=== PATIENT | female | born 1970 | race Caucasian/White ===

== ENCOUNTER 2017-05-29 16:08 | Emergency (ER) | payer SELFPAY ==
[~2017-05-29] VITALS: Ht 167.6 cm; Wt 59.0 kg
[2017-05-29 16:39] VITALS: BP 126/82
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
[2017-05-29] MEDS ORDERED: IBUPROFEN 600 MG TABLET. PO ONE (16:45)
[2017-05-29] MEDS ORDERED: NAPR-683 PO (16:58)
[2017-05-29] MEDS ORDERED: CYCL10TA2 PO (16:58)
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
== END 2017-05-29 17:02 | disposition home or self-care (01) ==
LOC: ER 16:08
DX: S46.911A Strain of unspecified muscle, fascia and tendon at shoulder and upper arm level, right arm, initial encounter (principal); I10 Essential (primary) hypertension; F12.10 Cannabis abuse, uncomplicated; F10.10 Alcohol abuse, uncomplicated; X58.XXXA Exposure to other specified factors, initial encounter; Y93.89 Activity, other specified; Y99.8 Other external cause status; Y92.89 Other specified places as the place of occurrence of the external cause
CPT/HCPCS: 73030; 99284

== ENCOUNTER 2017-06-13 15:49 | Emergency (ER) | payer SELFPAY ==
[~2017-06-13 15:49] MED LIST: CYCL10TA2 PO; NAPR-683 PO
== END 2017-06-13 16:06 | disposition left against medical advice (07) ==
LOC: ER 15:49
DX: J02.9 Acute pharyngitis, unspecified (principal); Z53.21 Procedure and treatment not carried out due to patient leaving prior to being seen by health care provider

== ENCOUNTER 2017-07-01 23:23 | Emergency (ER) | payer SELFPAY ==
[2017-07-01 23:41] LABS: URINE HCG POC HCG NEGATIVE (Negative)
== END 2017-07-02 00:18 | disposition home or self-care (01) ==
LOC: ER 23:23
DX: S46.912A Strain of unspecified muscle, fascia and tendon at shoulder and upper arm level, left arm, initial encounter (principal); F12.10 Cannabis abuse, uncomplicated; F17.210 Nicotine dependence, cigarettes, uncomplicated; Y04.0XXA Assault by unarmed brawl or fight, initial encounter; Y93.89 Activity, other specified; Y92.89 Other specified places as the place of occurrence of the external cause; Y99.8 Other external cause status
CPT/HCPCS: 73030; 81025; 99284

== ENCOUNTER 2017-10-23 07:15 | Emergency (ER) | payer SELFPAY ==
[2017-10-23] MEDS: KETOROLAC 60 MG/2 ML INJ. IM (08:00)
== END 2017-10-23 08:57 | disposition home or self-care (01) ==
LOC: ER 07:15
DX: S16.1XXA Strain of muscle, fascia and tendon at neck level, initial encounter (principal); R21 Rash and other nonspecific skin eruption; F17.200 Nicotine dependence, unspecified, uncomplicated; F12.10 Cannabis abuse, uncomplicated; X58.XXXA Exposure to other specified factors, initial encounter; Y93.89 Activity, other specified; Y99.8 Other external cause status; Y92.89 Other specified places as the place of occurrence of the external cause
CPT/HCPCS: 96372; 99283; J1885

== ENCOUNTER 2018-08-05 16:23 | Emergency (ER) | payer SELFPAY ==
[~2018-08-05] VITALS: Ht 167.6 cm; Wt 59.0 kg
[~2018-08-05 16:23] MED LIST changes: +CYCL5TAB PO; +TRIA15OI TP
[2018-08-05 18:01] VITALS: BP 140/56
--- NOTE | 2018-08-05 18:44 | PHYS DOC ---
Past Medical History Past Medical History: Other Additional Past Medical Histor: "Needs Spine Surgery" Past Surgical History: No Surgical History Alcohol Use: Rarely Drug Use: Marijuana Adult General Chief Complaint Chief Complaint: ABSCESS HPI HPI 47-year-old female presents to ER for complaints of sore on the left side of her left eyebrow. Patient reports sore has been present for the past week and a half and has gradually worsened. Patient states she has had an abscess on her face previously with similar presentation. Patient reports she's had intermittent headache denies any vision change, dizziness, or eye pain. Patient denies nausea or vomiting, fever, or earache. Review of Systems Review of Systems Constitutional: Denies fever or chills [] Eyes: Denies change in visual acuity, redness, or eye pain [] HENT: Denies nasal congestion or sore throat [] Cardiovascular: No additional information not addressed in HPI [] GI: Denies nausea, vomiting Musculoskeletal: Denies neck pain or joint pain [] Integument: Reports sore on lt side of lt eyebrow with swelling/redness Neurologic: Denies focal weakness or sensory changes [] All other systems were reviewed and found to be within normal limits, except as documented in this note. Current Medications Current Medications Current Medications Medications (Trade) Dose Ordered Sig/Abhishek Start Time Stop Time Status Last Admin Dose Admin Ibuprofen (Motrin) 600 mg 1X ONCE 08/05/18 18:45 08/05/18 18:46 DC 08/05/18 18:39 600 MG Lidocaine HCl (Xylocaine-Mpf 1% 2ml Vial) 2 ml 1X ONCE 08/05/18 18:45 08/05/18 18:46 DC 08/05/18 18:39 2 ML Allergies Allergies Allergies Coded Allergies Type Severity Reaction Last Updated Verified No Known Drug Allergies 09/06/14 No Physical Exam Physical Exam Constitutional: Well developed, well nourished, no acute distress, non-toxic appearance. [] HENT: Normocephalic, atraumatic, bilateral ears normal, oropharynx moist, no oral exudates, nose normal. Swelling to lateral edge of lt eyebrow with redness/ tenderness at site- wound has induration surrounding with area of fluctuation in center Eyes: 3mm PERRLA, no nystagmus, conjunctiva normal, no discharge. [] Neck: Normal range of motion, no tenderness, supple, no gross adenopathy Cardiovascular: Heart rate regular Lungs & Thorax: Resp. equal/nonlabored Skin: Warm, dry Back: No tenderness, full ROM Extremities: No tenderness, no cyanosis, ROM intact, no edema. [] Neurologic: Alert and oriented X 3, normal motor function, normal sensory function, no focal deficits noted. [] Psychologic: Affect normal, judgement normal, mood normal. [] Current Patient Data Vital Signs Vital Signs Date Time Temp Pulse Resp B/P (MAP) Pulse Ox O2 Delivery O2 Flow Rate FiO2 08/05/18 18:01 99.0 100 18 140/56 (84) 100 Room Air 99.0 EKG EKG [] Radiology/Procedures Radiology/Procedures Abscess Incision and Drainage with irrigation by me: 1909 Location: Just lateral to lt upper eyelid at the bottom edge of eye brow- no eye lid involvement Anesthesia: Local 1% Lidocaine 1mL Technique: #15 blade for incision and NS used for wound Irrigation. Disrupted loculations w/ instrumentation. Moderate amt purulent drainage from center of abscess Packin/ plain packing inserted with bandaid covering wound Complications: No complications- no c/o vision changes/dizziness/eye pain- reports improved head pain 48 hour wound check. Scar minimization instructions given. Course & Med Decision Making Course & Med Decision Making Pt was evaluated in the ER for an abscess to the left side of her left upper eyelid just below her eyebrow. Patient was given dose of ibuprofen while in the ER. Patient had I&D done with moderate amount of purulent drainage-wound culture was obtained. Patient had packing placed to wound with education on need for packing to be removed in 24 hours. Patient had instant relief and pressure at wound site and improved symptoms. She denied any dizziness or eye pain. Education provided on signs and symptoms for patient to return to ER for and discharge instructions were discussed. Patient advised on warm compress applications to site. Education on wound care provided. Patient will be provided with prescription for Bactrim DS. Will provide with community clinic and physician referral information for follow-up purposes as patient has no primary care physician. At time of discharge discussion pt had steady gait and was in no distress. Dragon Disclaimer Dragon Disclaimer This electronic medical record was generated, in whole or in part, using a voice recognition dictation system. Departure Departure Impression: Primary Impression: Abscess Disposition: HOME, SELF-CARE Condition: STABLE Referrals: NO PCP (PCP) Patient Instructions: Abscess, Incision and Drainage Additional Instructions: Avoid squeezing or picking on sore. Ibuprofen as directed on container for additional pain relief as needed. Follow-up with primary doctor in 2-3 days for wound re-evaluation sooner with any concerns. Packing needs to be removed in 24 hours you can return to the ER if you are unable to get into a clinic for wound reevaluation. Scripts Sulfamethoxazole/Trimethoprim (BACTRIM DS TABLET) 1 Each Tablet 1 TAB PO BID, #14 TAB 0 Refills Prov: LISBETH JONES APRN 08/05/18 LISBETH JONES APRN Aug 05, 2018 18:44
[2018-08-05] MEDS ORDERED: LIDOCAINE 1% PF 2 ML VIAL. INJ ONE (18:45)
[2018-08-05] MEDS ORDERED: IBUPROFEN 600 MG TABLET. PO ONE (18:45)
[2018-08-05] MEDS ORDERED: SULF1TAB24 PO (19:37)
== END 2018-08-05 19:44 | disposition home or self-care (01) ==
LOC: ER 16:23
DX: L02.01 Cutaneous abscess of face (principal)
CPT/HCPCS: 10060; 87070; 99283

== ENCOUNTER 2019-04-12 14:38 | Emergency (ER) | payer SELFPAY ==
[~2019-04-12] VITALS: Ht 167.6 cm; Wt 49.9 kg
[~2019-04-12 14:38] MED LIST changes: +SULF1TAB24 PO; +TRIA15CR2 TP
[2019-04-12 15:11] VITALS: BP 123/75
[2019-04-12] MEDS ORDERED: CEPH-264 PO (15:18)
[2019-04-12] MEDS ORDERED: CLOT15CR5 TP (15:18)
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
== END 2019-04-12 15:32 | disposition home or self-care (01) ==
LOC: ER 14:38
DX: L97.929 Non-pressure chronic ulcer of unspecified part of left lower leg with unspecified severity (principal); I10 Essential (primary) hypertension
CPT/HCPCS: 99283

== ENCOUNTER 2019-08-14 22:47 | Emergency (ER) | payer SELFPAY ==
[~2019-08-14] VITALS: Ht 167.6 cm; Wt 72.0 kg
[~2019-08-14 22:47] MED LIST changes: +CEPH-264 PO; +CLOT15CR5 TP
[2019-08-14 23:15] VITALS: BP 128/80
[2019-08-14] MEDS ORDERED: IBUPROFEN 200 MG TABLET. PO ONE (23:30)
[2019-08-14] MEDS ORDERED: TRAM50TA PO (23:43)
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
== END 2019-08-14 23:54 | disposition home or self-care (01) ==
LOC: ER 22:47
DX: S62.396A Other fracture of fifth metacarpal bone, right hand, initial encounter for closed fracture (principal); R60.0 Localized edema; Y08.09XA Assault by strike by other specified type of sport equipment, initial encounter; Y93.89 Activity, other specified; Y92.89 Other specified places as the place of occurrence of the external cause; Y99.8 Other external cause status
CPT/HCPCS: 29125; 73130; 99283

== ENCOUNTER 2019-09-02 08:46 | Emergency (ER) | payer SELFPAY ==
[~2019-09-02 08:46] MED LIST changes: +TRAM50TA PO
== END 2019-09-02 09:10 | disposition left against medical advice (07) ==
LOC: ER 08:46
DX: G89.18 Other acute postprocedural pain (principal); Z53.21 Procedure and treatment not carried out due to patient leaving prior to being seen by health care provider

== ENCOUNTER 2019-10-08 12:57 | Inpatient (IN) | payer SELFPAY ==
[~2019-10-08] VITALS: Ht 167.6 cm; Wt 60.5 kg
[2019-10-08] MEDS ORDERED: LORazepam 0.5 MG TABLET PO ONE (13:45)
--- NOTE | 2019-10-08 13:59 | RAD ---
AP chest. HISTORY: Cough, short of breath AP view was taken of the chest. The heart is enlarged. There is pulmonary vascular congestion with interstitial edema. There are small effusions. The pattern suggests heart failure. Interstitial infiltrates for other etiologies could not be excluded. IMPRESSION: 1. Cardiomegaly with vascular congestion and interstitial edema suggests heart failure. Electronically signed by: Franc Rios MD (10/08/2019 1:56 PM) [id number]
[2019-10-08 14:50] LABS: BASO # 0.1 x10^3/uL (0.0-0.2); BASO % 1 % (0-3); EOS % 0 % (0-3); HEMATOCRIT 39.5 % (36.0-47.0); HEMOGLOBIN 12.9 g/dL (12.0-15.5); LYMPH # 3.2 x10^3/uL (1.0-4.8); LYMPH % 52 % (24-48); MEAN CORPUSCULAR HEMOGLOBIN 28 pg (25-35); MEAN CORPUSCULAR HGB CONC 33 g/dL (31-37); MEAN CORPUSCULAR VOLUME 85 fL (79-100); MONO # 0.9 x10^3/uL (0.0-1.1); MONO % 14 % (0-9); NEUT % 33 % (31-73); PLATELET COUNT 249 x10^3/uL (140-400); RED BLOOD COUNT 4.67 x10^6/uL (3.50-5.40); RED CELL DISTRIBUTION WIDTH 14.2 % (11.5-14.5); WHITE BLOOD COUNT 6.2 x10^3/uL (4.0-11.0)
--- NOTE | 2019-10-08 14:57 | EKG ---
[facility] [address] [place] [address] Test Date: 2019-10-08 Test Time: 14:34:24 Pat Name: BRIDGET BACH Department: Room: Gender: F [employer]: FRANCISCO : 1970 Requested By: CYN LIU Order Number: [id number] Reading MD: Jose Schroeder Measurements Intervals Garden Rate: 125 P: 30 CT: 120 QRS: -109 QRSD: 94 T: 112 QT: 354 QTc: 513 Interpretive Statements SINUS TACHYCARDIA VENTRICULAR PREMATURE COMPLEX(ES) INCOMPLETE RIGHT BUNDLE BRANCH BLOCK CONSIDER LEFT VENTRICULAR HYPERTROPHY NONSPECIFIC ST-T WAVE CHANGES. Electronically Signed On 10-09-2019 11:15:47 CDT by Jose Schroeder
[2019-10-08 14:59] LABS: PROTHROMBIN TIME PATIENT 14.8 SEC (11.7-14.0)
[2019-10-08 15:06] LABS: ALBUMIN 2.7 g/dL (3.4-5.0); ALBUMIN/GLOBULIN RATIO 0.7 (1.0-1.7); CREATININE 0.6 mg/dL (0.6-1.0); GFR 107.2; MAGNESIUM 1.3 mg/dL (1.8-2.4); TOTAL BILIRUBIN 1.2 mg/dL (0.2-1.0); TOTAL PROTEIN 6.6 g/dL (6.4-8.2)
[2019-10-08 15:14] LABS: POTASSIUM 2.8 mmol/L (3.5-5.1)
[2019-10-08 15:15] LABS: CREATINE KINASE 74 U/L (26-192)
[2019-10-08] MEDS ORDERED: POTASSIUM CHLORIDE 20 MEQ TABLET.ER. PO ONE (15:15)
[2019-10-08] MEDS ORDERED: fentaNYL PF VIAL 100 MCG/2 ML VIAL IVP ONE (15:15)
[2019-10-08] MEDS ORDERED: fentaNYL PF VIAL 100 MCG/2 ML VIAL IV ONE (15:15)
--- NOTE | 2019-10-08 15:16 | PHYS DOC ---
Past Medical History Past Medical History: No Pertinent History Additional Past Medical Histor: "Needs Spine Surgery", UNKNOWN BREATHING PROBLEM Past Surgical History: Tubal ligation, Other Additional Past Surgical Histo: had surgery on her hand about 2 months ago Smoking Status: Current Every Day Smoker Alcohol Use: Occasionally Drug Use: Marijuana General Adult EDM: Chief Complaint: ANXIETY/PANIC ATTACK HPI: HPI: Patient is a 48 year old AA female who presents to the emergency department with complaints of shortness of breath and non-productive cough for the last 7 days that has progressively gotten worse. Patient states that she feels anxious at this time. She denies any fever, myalgias, headache, sore throat, nausea, vomiting, or diarrhea. She reports that her back hurts when she takes a deep breath. Patient states that she she last smoked some marijuana laced with cocaine 4 days ago. Currently she rates her chest pain a 5/10 on the pain scale. She denies any alleviating factors and states that the pain increases when she lies down. Pt denies any medical history and reports surgical hx that includes a BTL and R hand surgery. Review of Systems: Review of Systems: Constitutional: Denies fever or chills. [] Eyes: Denies change in visual acuity. [] HENT: Denies nasal congestion or sore throat. [] Respiratory: See HPI Cardiovascular: Denies palpitations or edema; reports substernal CP GI: Denies abdominal pain, nausea, vomiting, or diarrhea. [] : Denies dysuria. [] Musculoskeletal: Denies joint pain; reports diffuse upper back pain Integument: Denies rash. [] Neurologic: Denies headache, focal weakness or sensory changes. [] Endocrine: Denies polyuria or polydipsia. [] Lymphatic: Denies swollen glands. [] Psychiatric: Denies depression or anxiety. [] Heart Score: Risk Factors: Risk Factors: DM, Current or recent (<one month) smoker, HTN, HLP, family history of CAD, obesity. Risk Scores: Score 0 - 3: 2.5% MACE over next 6 weeks - Discharge Home Score 4 - 6: 20.3% MACE over next 6 weeks - Admit for Clinical Observation Score 7 - 10: 72.7% MACE over next 6 weeks - Early Invasive Strategies Current Medications: Current Medications Medications (Trade) Dose Ordered Sig/Abhishek Start Time Stop Time Status Last Admin Dose Admin Fentanyl Citrate (Fentanyl 2ml Vial) 50 mcg 1X ONCE 10/08/19 15:15 10/08/19 15:16 Lorazepam (Ativan) 1 mg 1X ONCE 10/08/19 13:45 10/08/19 13:46 DC 10/08/19 13:50 1 MG Allergies: Allergies: Allergies Coded Allergies Type Severity Reaction Last Updated Verified No Known Drug Allergies 09/06/14 No Physical Exam: PE: Constitutional: Well developed, well nourished, moderate distress, non-toxic appearance, appears anxious HENT: Normocephalic, atraumatic, bilateral external ears normal, oropharynx moist, no oral exudates, nose normal. [] Eyes: PERRLA, EOMI, conjunctiva normal, no discharge. [] Neck: Normal range of motion, no stridor. [] Cardiovascular:Heart rate regular tachycardic rhythm, no murmur [] Lungs & Thorax: Bilateral breath sounds clear to auscultation in upper lobes bilateral, diminished posterior bilat, increased rate, no retractions [] Abdomen: soft, no tenderness Skin: Warm, dry, no erythema, no rash. [] Back: No tenderness Extremities: No cyanosis, ROM intact, no edema. [] Neurologic: Alert and oriented X 3, no focal deficits noted. [] Psychologic: Affect normal, judgement normal, mood normal. [] Current Patient Data: Labs: Laboratory Tests Test 10/08/19 14:40 White Blood Count 6.2 x10^3/uL (4.0-11.0) Red Blood Count 4.67 x10^6/uL (3.50-5.40) Hemoglobin 12.9 g/dL (12.0-15.5) Hematocrit 39.5 % (36.0-47.0) Mean Corpuscular Volume 85 fL (79-100) Mean Corpuscular Hemoglobin 28 pg (25-35) Mean Corpuscular Hemoglobin Concent 33 g/dL (31-37) Red Cell Distribution Width 14.2 % (11.5-14.5) Platelet Count 249 x10^3/uL (140-400) Neutrophils (%) (Auto) 33 % (31-73) Lymphocytes (%) (Auto) 52 % (24-48) H Monocytes (%) (Auto) 14 % (0-9) H Eosinophils (%) (Auto) 0 % (0-3) Basophils (%) (Auto) 1 % (0-3) Neutrophils # (Auto) 2.0 x10^3/uL (1.8-7.7) Lymphocytes # (Auto) 3.2 x10^3/uL (1.0-4.8) Monocytes # (Auto) 0.9 x10^3/uL (0.0-1.1) Eosinophils # (Auto) 0.0 x10^3/uL (0.0-0.7) Basophils # (Auto) 0.1 x10^3/uL (0.0-0.2) Prothrombin Time 14.8 SEC (11.7-14.0) H Prothrombin Time INR 1.2 (0.8-1.1) H Activated Partial Thromboplast Time 28 SEC (24-38) Laboratory Tests 10/08/19 14:40 Vital Signs: Vital Signs Date Time Temp Pulse Resp B/P (MAP) Pulse Ox O2 Delivery O2 Flow Rate FiO2 10/08/19 14:29 126 20 151/107 (122) 99.0 10/08/19 13:05 97.8 98 Room Air 97.8 EKG: EK- Sinus tachycardia with PVCs, rate 126, no STEMI read by Dr. Umana 1531-sinus tachycardia, by atrial enlargement, abnormal left axis deviation, incomplete right bundle branch block LVH with repolarization abnormality, rate 119, no STEMI, read by Dr. Umana[] Radiology/Procedures: Radiology/Procedures: PROCEDURE: CHEST AP ONLY AP chest. HISTORY: Cough, short of breath AP view was taken of the chest. The heart is enlarged. There is pulmonary vascular congestion with interstitial edema. There are small effusions. The pattern suggests heart failure. Interstitial infiltrates for other etiologies could not be excluded. IMPRESSION: 1. Cardiomegaly with vascular congestion and interstitial edema suggests heart failure. [] Course & Med Decision Making: Course & Med Decision Making Pertinent Labs and Imaging studies reviewed. (See chart for details) COVID-19 CRITERIA: The patient was evaluated during the global COVID-19 pandemic, and that diagnosis was suspected/considered upon their initial presentation. Their evaluation, treatment and testing was consistent with current guidelines for patients who present with complaints or symptoms that may be related to COVID-19. 1533- Spoke with Dr. Oakley and advised of patient with acute heart failure, cocaine abuse, shortness of breath, and PUI. Will speak with cardiology then call Dr. Oakley back. 1537- Spoke with Gillian with cardiology and advised of patient in the ER. Per Gillian pt needs to be admitted for diuresis. 1542- spoke with Dr. Oakley who is the admitting physician, and care was assumed following discussion of patient. Patient's vital signs stable. Patient remains afebrile, appears nontoxic, respi rations even and unlabored. Patient will be admitted to the [facility] floor. Patient's case and plan of care also discussed with Dr. Umaan CRITICAL CARE: Time spent was 35 minutes. This includes medical management, evaluation, reevaluation, discussion with consultants and family. Critical Care does NOT include time spent on separately billed procedures. [] Dragon Disclaimer: Dragon Disclaimer: This electronic medical record was generated, in whole or in part, using a voice recognition dictation system. Departure Departure Impression: Primary Impression: Acute heart failure Qualified Codes: I50.9 - Heart failure, unspecified Additional Impressions: Cocaine abuse Shortness of breath Suspected COVID-19 virus infection Disposition: ADMITTED INPATIENT Admitting Physician: MARIA SANTOYO) Condition: STABLE Referrals: NO PCP (PCP) COVID-19 Assessment: COVID-19 Patient Risks: Age 65 or older: No Sign of co-morbidity: Yes Exp to person + for COVID: No Exp to PUI: No Travel from affected area: No Lower respiratory symptoms: Yes Fever: No PPE Use: Full PPE with N95 mask or PAPR: Yes (Full PPE with N95 worn by myself) CYN LIU MASCARA MOLDER Oct 08, 2019 15:16
[2019-10-08 15:29] LABS: BARBITURATES NEG (NEG); BENZODIAZEPINES NEG (NEG); CANNABINOIDS POS (NEG); COCAINE POS (NEG); METHADONE NEG (NEG); OPIATES NEG (NEG); PHENCYCLIDINE NEG (NEG)
[2019-10-08] MEDS ORDERED: FUROSEMIDE 20 MG/2 ML VIAL. IVP ONE (15:30)
[2019-10-08 15:33] LABS: AMPHETAMINE/METHAMPHETAMINE NEG (NEG)
[2019-10-08] MEDS ORDERED: fentaNYL PF VIAL 100 MCG/2 ML VIAL IV PRN (15:45)
[2019-10-08] MEDS: POTASSIUM CHLORIDE 10MEQ 100 ML IV SCH ×2 (15:46→17:18)
[2019-10-08 16:05] LABS: BILIRUBIN,URINE NEGATIVE (NEG); CLARITY,URINE CLEAR; NITRITE,URINE NEGATIVE (NEG); PROTEIN,URINE NEGATIVE (NEG-TRACE)
[2019-10-08 16:07] LABS: COLOR,URINE YELLOW
[2019-10-08 16:09] LABS: BACTERIA,URINE MODERATE /HPF (0-FEW); RBC,URINE 0 /HPF (0-2); SQUAMOUS EPITHELIAL CELL,UR FEW /LPF
[2019-10-08] MEDS ORDERED: ACETAMINOPHEN 325 MG TABLET. PO PRN (16:15)
[2019-10-08] MEDS ORDERED: CYCLOBENZAPRINE 10 MG TABLET. PO PRN (16:15)
[2019-10-08] MEDS ORDERED: ONDANSETRON PF 4 MG/2 ML VIAL. IV PRN (16:15)
[2019-10-08] MEDS ORDERED: DOCUSATE SODIUM 100 MG CAPSULE. PO PRN (16:15)
[2019-10-08] MEDS ORDERED: traMADol 50 MG TABLET PO PRN (16:15)
[2019-10-08] MEDS ORDERED: guaiFENesin ORAL 200 MG/10 ML LIQUID. PO PRN (16:15)
[2019-10-08] MEDS ORDERED: LORazepam 0.5 MG TABLET PO PRN (16:15)
[2019-10-08] MEDS ORDERED: ALBUTEROL SULFATE 2.5 MG/3 ML NEBU. NEB PRN (16:15)
--- NOTE | 2019-10-08 16:20 | PDOC1 ---
History and Physical Date of Admission Date of Admission 10/08/2019 Identification/Chief Complaint Chief Complaint I could not breathe Source Source: Chart review, Patient History of Present Illness History of Present Illness Patient is a 48-year-old female with no significant past medical history who comes today with history of more or less 1 day of shortness of breath, the patient has been a smoker since the age of 14. Of note is that the patient is a poor historian and most of the story is from report from the ER practitioner. Patient apparently came in concern for shortness of breath and she was worked up and noticed to have an elevated BNP and evidence of failure on chest x-ray, mild elevation of troponin which in the setting of cocaine abuse is not uncommon. The patient denied chest pain her main concern was her shortness of breath which apparently has been progressively getting worse to the point that now she is unable to take a deep breath, she denies pleurisy, she denies fever, no sputum production. The patient smokes cocaine as well as marijuana on top of her cigarettes most likely all her symptoms stem from the chronic use of the substances. She denies headache no strokelike symptoms no chest pain no abdominal pain no nausea vomiting diarrhea no urinary symptoms no other complaints were voiced during my visit. Patient is being admitted at the request of the ER for cardiology evaluation correction of her electrolyte disturbances and diuresis. Plan of care has been explained detail the patient no other concerns were voiced Past Medical History Cardiovascular: HTN Social History Smoke: # pack years (34) Drugs: Cocaine, Marijuana Current Problem List Problem List Problems Medical Problems: (1) Acute heart failure Status: Acute (2) Cocaine abuse Status: Acute (3) Shortness of breath Status: Acute (4) Suspected COVID-19 virus infection Status: Acute Current Medications Current Medications Current Medications Medications (Trade) Dose Ordered Sig/Abhishek Start Time Stop Time Status Last Admin Dose Admin Acetaminophen (Tylenol) 650 mg PRN Q4HRS PRN 10/08/19 16:15 Albuterol Sulfate (Ventolin Neb Soln) 2.5 mg PRN Q4HRS PRN 10/08/19 16:15 UNV Betamethasone/ Clotrimazole (Lotrisone) 1 charis BID 10/08/19 21:00 UNV Cyclobenzaprine HCl (Flexeril) 10 mg TID PRN 10/08/19 16:15 UNV Docusate Sodium (Colace) 100 mg PRN BID PRN 10/08/19 16:15 UNV Enoxaparin Sodium (Lovenox 40mg Syringe) 40 mg Q24H 10/08/19 16:15 UNV Fentanyl Citrate (Fentanyl 2ml Vial) 50 mcg PRN Q1HR PRN 10/08/19 15:45 10/09/19 15:44 Furosemide (Lasix) 20 mg 1X ONCE 10/08/19 15:30 10/08/19 15:31 DC 10/08/19 15:42 20 MG Guaifenesin (Robitussin) 200 mg PRN Q4HRS PRN 10/08/19 16:15 UNV Lorazepam (Ativan) 1 mg PRN Q4HRS PRN 10/08/19 16:15 UNV Naproxen (Naprosyn) 500 mg BID 10/08/19 21:00 UNV Non-Formulary Medication (Cyclobenzaprine Hcl ) 1 tab QHS 10/08/19 21:00 UNV Non-Formulary Medication (Triamcinolone Acetonide (Triamcinolone Acetonide 0.025% Cream)) 1 charis BID 10/08/19 21:00 UNV Ondansetron HCl (Zofran) 4 mg PRN Q4HRS PRN 10/08/19 16:15 Potassium Chloride/Water 100 ml @ 100 mls/hr Q1H 10/08/19 15:30 10/08/19 17:29 10/08/19 15:46 100 MLS/HR Potassium Chloride (Klor-Con) 40 meq 1X ONCE 10/08/19 15:15 10/08/19 15:18 DC 10/08/19 15:36 40 MEQ Tramadol HCl (Ultram) 50 mg Q6H PRN 10/08/19 16:15 UNV Triamcinolone Acetonide (Kenalog 0.1%) 1 charis BID 10/08/19 21:00 UNV Zolpidem Tartrate (Ambien) 5 mg PRN QHS PRN 10/08/19 16:15 Allergies Allergies Allergies Coded Allergies Type Severity Reaction Last Updated Verified No Known Drug Allergies 09/06/14 No ROS Review of System CONSTITUTIONAL: No fever or chills EYES: No recent changes SKIN: No rash or itching CARDIOVASCULAR: No chest pain, syncope, palpitations, or edema RESPIRATORY: No SOB or cough GASTROINTESTINAL: No nausea, vomiting or abdominal pain NEUROLOGICAL: No headaches or weakness ENDOCRINE: No cold or heat intolerance GENITOURINARY: No urgency or frequency of urination MUSCULOSKELETAL: No back pain or joint pain LYMPHATICS: No enlarged lymph nodes PSYCHIATRIC: No anxiety or depression Physical Exam Physical Exam GEN.: No apparent distress. Alert and oriented. HEENT: Head is normocephalic, atraumatic NECK: Supple. LUNGS: Clear to auscultation. HEART: RRR, S1, S2 present. Peripheral pulses intact ABDOMEN: Soft, nontender. Positive bowel sounds. EXTREMITIES: Without any cyanosis. NEUROLOGIC: Normal speech, normal tone PSYCHIATRIC: Normal affect, normal mood. SKIN: No ulcerations Vitals Vitals Vital Signs Date Time Temp Pulse Resp B/P (MAP) Pulse Ox O2 Delivery O2 Flow Rate FiO2 10/08/19 15:59 126 20 163/110 (127) 10/08/19 15:39 95 Room Air 10/08/19 15:25 93.0 10/08/19 13:05 97.8 97.8 Labs Labs Laboratory Tests Test 10/08/19 14:40 10/08/19 14:45 10/08/19 15:55 White Blood Count 6.2 x10^3/uL (4.0-11.0) Red Blood Count 4.67 x10^6/uL (3.50-5.40) Hemoglobin 12.9 g/dL (12.0-15.5) Hematocrit 39.5 % (36.0-47.0) Mean Corpuscular Volume 85 fL (79-100) Mean Corpuscular Hemoglobin 28 pg (25-35) Mean Corpuscular Hemoglobin Concent 33 g/dL (31-37) Red Cell Distribution Width 14.2 % (11.5-14.5) Platelet Count 249 x10^3/uL (140-400) Neutrophils (%) (Auto) 33 % (31-73) Lymphocytes (%) (Auto) 52 % (24-48) Monocytes (%) (Auto) 14 % (0-9) Eosinophils (%) (Auto) 0 % (0-3) Basophils (%) (Auto) 1 % (0-3) Neutrophils # (Auto) 2.0 x10^3/uL (1.8-7.7) Lymphocytes # (Auto) 3.2 x10^3/uL (1.0-4.8) Monocytes # (Auto) 0.9 x10^3/uL (0.0-1.1) Eosinophils # (Auto) 0.0 x10^3/uL (0.0-0.7) Basophils # (Auto) 0.1 x10^3/uL (0.0-0.2) Prothrombin Time 14.8 SEC (11.7-14.0) Prothromb Time International Ratio 1.2 (0.8-1.1) Activated Partial Thromboplast Time 28 SEC (24-38) D-Dimer (Paola) 1.82 ug/mlFEU (0.00-0.50) Sodium Level 140 mmol/L (136-145) Potassium Level 2.8 mmol/L (3.5-5.1) Chloride Level 102 mmol/L (98-107) Carbon Dioxide Level 29 mmol/L (21-32) Anion Gap 9 (6-14) Blood Urea Nitrogen 9 mg/dL (7-20) Creatinine 0.6 mg/dL (0.6-1.0) Estimated GFR (Cockcroft-Gault) 107.2 BUN/Creatinine Ratio 15 (6-20) Glucose Level 133 mg/dL (70-99) Calcium Level 9.0 mg/dL (8.5-10.1) Magnesium Level 1.3 mg/dL (1.8-2.4) Total Bilirubin 1.2 mg/dL (0.2-1.0) Aspartate Amino Transf (AST/SGOT) 35 U/L (15-37) Alanine Aminotransferase (ALT/SGPT) 36 U/L (14-59) Alkaline Phosphatase 182 U/L (46-116) Creatine Kinase 74 U/L (26-192) Creatine Kinase MB (Mass) 1.5 ng/mL (0.0-3.6) Creatine Kinase MB Relative Index % (0-4) Troponin I Quantitative 0.061 ng/mL (0.000-0.055) CZ-Ldy-X-Type Natriuretic Peptide 9151 pg/mL (0-124) Total Protein 6.6 g/dL (6.4-8.2) Albumin 2.7 g/dL (3.4-5.0) Albumin/Globulin Ratio 0.7 (1.0-1.7) Urine Opiates Screen Neg (NEG) Urine Methadone Screen Neg (NEG) Urine Barbiturates Neg (NEG) Urine Phencyclidine Screen Neg (NEG) Urine Amphetamine/Methamphetamine Neg (NEG) Urine Benzodiazepines Screen Neg (NEG) Urine Cocaine Screen Pos (NEG) Urine Cannabinoids Screen Pos (NEG) Urine Ethyl Alcohol Neg (NEG) Urine Collection Type Unknown Urine Color Yellow Urine Clarity Clear Urine pH 7.0 (<5.0-8.0) Urine Specific [place] <=1.005 (1.000-1.030) Urine Protein Negative mg/dL (NEG-TRACE) Urine Glucose (UA) Negative mg/dL (NEG) Urine Ketones (Stick) Negative mg/dL (NEG) Urine Blood Negative (NEG) Urine Nitrite Negative (NEG) Urine Bilirubin Negative (NEG) Urine Urobilinogen Dipstick 2.0 mg/dL (0.2 mg/dL) Urine Leukocyte Esterase Trace (NEG) Urine RBC 0 /HPF (0-2) Urine WBC 1-4 /HPF (0-4) Urine Squamous Epithelial Cells Few /LPF Urine Bacteria Moderate /HPF (0-FEW) Laboratory Tests Test 10/08/19 14:40 10/08/19 14:45 10/08/19 15:55 White Blood Count 6.2 x10^3/uL (4.0-11.0) Red Blood Count 4.67 x10^6/uL (3.50-5.40) Hemoglobin 12.9 g/dL (12.0-15.5) Hematocrit 39.5 % (36.0-47.0) Mean Corpuscular Volume 85 fL (79-100) Mean Corpuscular Hemoglobin 28 pg (25-35) Mean Corpuscular Hemoglobin Concent 33 g/dL (31-37) Red Cell Distribution Width 14.2 % (11.5-14.5) Platelet Count 249 x10^3/uL (140-400) Neutrophils (%) (Auto) 33 % (31-73) Lymphocytes (%) (Auto) 52 % (24-48) Monocytes (%) (Auto) 14 % (0-9) Eosinophils (%) (Auto) 0 % (0-3) Basophils (%) (Auto) 1 % (0-3) Neutrophils # (Auto) 2.0 x10^3/uL (1.8-7.7) Lymphocytes # (Auto) 3.2 x10^3/uL (1.0-4.8) Monocytes # (Auto) 0.9 x10^3/uL (0.0-1.1) Eosinophils # (Auto) 0.0 x10^3/uL (0.0-0.7) Basophils # (Auto) 0.1 x10^3/uL (0.0-0.2) Prothrombin Time 14.8 SEC (11.7-14.0) Prothromb Time International Ratio 1.2 (0.8-1.1) Activated Partial Thromboplast Time 28 SEC (24-38) D-Dimer (Paola) 1.82 ug/mlFEU (0.00-0.50) Sodium Level 140 mmol/L (136-145) Potassium Level 2.8 mmol/L (3.5-5.1) Chloride Level 102 mmol/L (98-107) Carbon Dioxide Level 29 mmol/L (21-32) Anion Gap 9 (6-14) Blood Urea Nitrogen 9 mg/dL (7-20) Creatinine 0.6 mg/dL (0.6-1.0) Estimated GFR (Cockcroft-Gault) 107.2 BUN/Creatinine Ratio 15 (6-20) Glucose Level 133 mg/dL (70-99) Calcium Level 9.0 mg/dL (8.5-10.1) Magnesium Level 1.3 mg/dL (1.8-2.4) Total Bilirubin 1.2 mg/dL (0.2-1.0) Aspartate Amino Transf (AST/SGOT) 35 U/L (15-37) Alanine Aminotransferase (ALT/SGPT) 36 U/L (14-59) Alkaline Phosphatase 182 U/L (46-116) Creatine Kinase 74 U/L (26-192) Creatine Kinase MB (Mass) 1.5 ng/mL (0.0-3.6) Creatine Kinase MB Relative Index % (0-4) Troponin I Quantitative 0.061 ng/mL (0.000-0.055) IY-Hel-R-Type Natriuretic Peptide 9151 pg/mL (0-124) Total Protein 6.6 g/dL (6.4-8.2) Albumin 2.7 g/dL (3.4-5.0) Albumin/Globulin Ratio 0.7 (1.0-1.7) Urine Opiates Screen Neg (NEG) Urine Methadone Screen Neg (NEG) Urine Barbiturates Neg (NEG) Urine Phencyclidine Screen Neg (NEG) Urine Amphetamine/Methamphetamine Neg (NEG) Urine Benzodiazepines Screen Neg (NEG) Urine Cocaine Screen Pos (NEG) Urine Cannabinoids Screen Pos (NEG) Urine Ethyl Alcohol Neg (NEG) Urine Collection Type Unknown Urine Color Yellow Urine Clarity Clear Urine pH 7.0 (<5.0-8.0) Urine Specific [place] <=1.005 (1.000-1.030) Urine Protein Negative mg/dL (NEG-TRACE) Urine Glucose (UA) Negative mg/dL (NEG) Urine Ketones (Stick) Negative mg/dL (NEG) Urine Blood Negative (NEG) Urine Nitrite Negative (NEG) Urine Bilirubin Negative (NEG) Urine Urobilinogen Dipstick 2.0 mg/dL (0.2 mg/dL) Urine Leukocyte Esterase Trace (NEG) Urine RBC 0 /HPF (0-2) Urine WBC 1-4 /HPF (0-4) Urine Squamous Epithelial Cells Few /LPF Urine Bacteria Moderate /HPF (0-FEW) VTE Prophylaxis Ordered VTE Prophylaxis Devices: No VTE Pharmacological Prophylaxi: Yes Assessment/Plan Assessment/Plan Dyspnea secondary to most likely acute COPD exacerbation Cocaine abuse with subsequent elevation in troponin secondary to demand ischemia most likely Elevated BNP with no history of congestive heart failure Tobacco abuse Marijuana abuse Hypokalemia History of chronic back pain without alarming signs Plan Admit the patient for diuresis Replace electrolytes Resume home medication Cardiology consult has been requested Further recommendations based on the clinical course Please see orders for detail DVT prophylaxis with MARY Tian MD Oct 08, 2019 16:20
[2019-10-08 16:33] LABS: INFLUENZA A PATIENT NEGATIVE (NEGATIVE); INFLUENZA B PATIENT NEGATIVE (NEGATIVE)
[2019-10-08] MEDS ORDERED: IOHEXOL 350 MG/ML 100 ML VIAL. IV ONE (17:45)
[2019-10-08] MEDS ORDERED: CONTRAST GIVEN. MC PRN (17:45)
--- NOTE | 2019-10-08 18:33 | RAD ---
Exam: CT of chest with contrast INDICATION: Elevated d-dimer, chest pain, tachycardia TECHNIQUE: Sequential axial images through the chest obtained following the administration of 75 mL of Omni 350 IV contrast. Sagittal and coronal reformatted images were reconstructed from the axial data and reviewed. 3-D reformatted images were reconstructed from the axial data and reviewed. Comparisons: Chest x-ray same day FINDINGS: No enlarged mediastinal lymph nodes are identified. Heart is enlarged. No pericardial effusion. Thoracic aorta has a normal course and caliber. Pulmonary artery is not enlarged. No pulmonary embolus identified within the main and lobar pulmonary arteries. Airways are patent. No consolidation or pneumothorax. There is a moderate right and trace left pleural effusion. Visualized upper abdomen is unremarkable. No suspicious osseous lesions or acute fractures. IMPRESSION: No pulmonary embolus identified within the main or lobar pulmonary arteries. Evaluation distally is limited secondary to contrast bolus timing. Exposure: One or more of the following in the visualized dose reduction techniques were utilized for this examination: 1. Automated exposure control 2. Adjustment of the MA and/or KV according to patient size 3. Use of iterative of reconstructive technique Electronically signed by: Stacie Morales MD (10/08/2019 6:30 PM) [id number]
[2019-10-08 19:00] VITALS: BP 132/98
[2019-10-08] MEDS ORDERED: CLOTRIMAZOLE/BETAMETH 1%-0.05% TOPICAL CREAM 15GM TUBE. TP SCH (21:00)
[2019-10-08] MEDS ORDERED: TRIAMCINOLONE ACETONIDE 0.1% TOPICAL OINTMENT 15GM TUBE. TP SCH (21:00)
[2019-10-08] MEDS ORDERED: TRIAMCINOLONE ACETONIDE TP SCH (21:00)
[2019-10-08] MEDS: CYCLOBENZAPRINE 10 MG TABLET. PO SCH (21:01)
[2019-10-08] MEDS: ENOXAPARIN 40 MG/0.4 ML SYRINGE. SQ SCH (21:01)
[2019-10-08] MEDS: NAPROXEN 500 MG TABLET PO SCH (21:02)
[2019-10-08] MEDS: POTASSIUM CHLORIDE 20 MEQ TABLET.ER. PO SCH ×2 (21:02→23:35)
[2019-10-08] MEDS: ZOLPIDEM 5 MG TABLET. PO PRN (21:14)
[2019-10-08 23:00] VITALS: BP 136/90
[2019-10-09] MEDS: POTASSIUM CHLORIDE 20 MEQ TABLET.ER. PO SCH (00:25)
[2019-10-09 03:00] VITALS: BP 114/73
[2019-10-09 07:00] VITALS: BP 125/97
[2019-10-09] MEDS: NAPROXEN 500 MG TABLET PO SCH (08:36)
[2019-10-09 11:00] VITALS: BP 138/87
[2019-10-09 11:38] LABS: CALCIUM 8.6 mg/dL (8.5-10.1); CREATININE 0.8 mg/dL (0.6-1.0); GFR 76.9; MAGNESIUM 1.4 mg/dL (1.8-2.4); POTASSIUM 4.2 mmol/L (3.5-5.1)
--- NOTE | 2019-10-09 11:40 | NUR ---
IP: Pt is COVID negative and may be removed from isolation.
[2019-10-09 11:42] LABS: CHOLESTEROL/HDL RATIO 4.5
--- NOTE | 2019-10-09 12:26 | PDOC3 ---
Discharge Summary Visit Information Date of Admission: Oct 08, 2019 Date of Discharge: Oct 09, 2019 Admitting Diagnosis Comment: Dyspnea secondary to most likely acute COPD exacerbation Cocaine abuse with subsequent elevation in troponin secondary to demand ischemia most likely Elevated BNP with no history of congestive heart failure Tobacco abuse Marijuana abuse Hypokalemia History of chronic back pain without alarming signs Final Diagnosis Problems Medical Problems: (1) Acute heart failure Status: Acute (2) Cocaine abuse Status: Acute (3) Shortness of breath Status: Acute (4) Negative test for COVID-19 virus infection Status: Acute Elevated TSH Brief Hospital Course Allergies Allergies Coded Allergies Type Severity Reaction Last Updated Verified No Known Drug Allergies 09/06/14 No Vital Signs Vital Signs Date Time Temp Pulse Resp B/P (MAP) Pulse Ox O2 Delivery O2 Flow Rate FiO2 10/09/19 08:00 Room Air 10/09/19 07:00 97.5 116 125/97 (106) 100 2.0 97.5 10/09/19 03:00 20 Lab Results Laboratory Tests Test 10/08/19 14:40 10/08/19 14:45 10/08/19 15:50 10/08/19 15:52 White Blood Count 6.2 x10^3/uL (4.0-11.0) Red Blood Count 4.67 x10^6/uL (3.50-5.40) Hemoglobin 12.9 g/dL (12.0-15.5) Hematocrit 39.5 % (36.0-47.0) Mean Corpuscular Volume 85 fL (79-100) Mean Corpuscular Hemoglobin 28 pg (25-35) Mean Corpuscular Hemoglobin Concent 33 g/dL (31-37) Red Cell Distribution Width 14.2 % (11.5-14.5) Platelet Count 249 x10^3/uL (140-400) Neutrophils (%) (Auto) 33 % (31-73) Lymphocytes (%) (Auto) 52 % (24-48) Monocytes (%) (Auto) 14 % (0-9) Eosinophils (%) (Auto) 0 % (0-3) Basophils (%) (Auto) 1 % (0-3) Neutrophils # (Auto) 2.0 x10^3/uL (1.8-7.7) Lymphocytes # (Auto) 3.2 x10^3/uL (1.0-4.8) Monocytes # (Auto) 0.9 x10^3/uL (0.0-1.1) Eosinophils # (Auto) 0.0 x10^3/uL (0.0-0.7) Basophils # (Auto) 0.1 x10^3/uL (0.0-0.2) Prothrombin Time 14.8 SEC (11.7-14.0) Prothromb Time International Ratio 1.2 (0.8-1.1) Activated Partial Thromboplast Time 28 SEC (24-38) D-Dimer (Paola) 1.82 ug/mlFEU (0.00-0.50) Sodium Level 140 mmol/L (136-145) Potassium Level 2.8 mmol/L (3.5-5.1) Chloride Level 102 mmol/L (98-107) Carbon Dioxide Level 29 mmol/L (21-32) Anion Gap 9 (6-14) Blood Urea Nitrogen 9 mg/dL (7-20) Creatinine 0.6 mg/dL (0.6-1.0) Estimated GFR (Cockcroft-Gault) 107.2 BUN/Creatinine Ratio 15 (6-20) Glucose Level 133 mg/dL (70-99) Calcium Level 9.0 mg/dL (8.5-10.1) Magnesium Level 1.3 mg/dL (1.8-2.4) Total Bilirubin 1.2 mg/dL (0.2-1.0) Aspartate Amino Transf (AST/SGOT) 35 U/L (15-37) Alanine Aminotransferase (ALT/SGPT) 36 U/L (14-59) Alkaline Phosphatase 182 U/L (46-116) Creatine Kinase 74 U/L (26-192) Creatine Kinase MB (Mass) 1.5 ng/mL (0.0-3.6) Creatine Kinase MB Relative Index % (0-4) Troponin I Quantitative 0.061 ng/mL (0.000-0.055) DR-Fep-E-Type Natriuretic Peptide 9151 pg/mL (0-124) Total Protein 6.6 g/dL (6.4-8.2) Albumin 2.7 g/dL (3.4-5.0) Albumin/Globulin Ratio 0.7 (1.0-1.7) Urine Opiates Screen Neg (NEG) Urine Methadone Screen Neg (NEG) Urine Barbiturates Neg (NEG) Urine Phencyclidine Screen Neg (NEG) Urine Amphetamine/Methamphetamine Neg (NEG) Urine Benzodiazepines Screen Neg (NEG) Urine Cocaine Screen Pos (NEG) Urine Cannabinoids Screen Pos (NEG) Urine Ethyl Alcohol Neg (NEG) Influenza Type A Antigen Negative (NEGATIVE) Influenza Type B Antigen Negative (NEGATIVE) Coronavirus (COVID-19)(PCR) See separate report Test 10/08/19 15:55 10/09/19 11:10 Urine Collection Type Unknown Urine Color Yellow Urine Clarity Clear Urine pH 7.0 (<5.0-8.0) Urine Specific [place] <=1.005 (1.000-1.030) Urine Protein Negative mg/dL (NEG-TRACE) Urine Glucose (UA) Negative mg/dL (NEG) Urine Ketones (Stick) Negative mg/dL (NEG) Urine Blood Negative (NEG) Urine Nitrite Negative (NEG) Urine Bilirubin Negative (NEG) Urine Urobilinogen Dipstick 2.0 mg/dL (0.2 mg/dL) Urine Leukocyte Esterase Trace (NEG) Urine RBC 0 /HPF (0-2) Urine WBC 1-4 /HPF (0-4) Urine Squamous Epithelial Cells Few /LPF Urine Bacteria Moderate /HPF (0-FEW) Sodium Level 144 mmol/L (136-145) Potassium Level 4.2 mmol/L (3.5-5.1) Chloride Level 106 mmol/L (98-107) Carbon Dioxide Level 31 mmol/L (21-32) Anion Gap 7 (6-14) Blood Urea Nitrogen 16 mg/dL (7-20) Creatinine 0.8 mg/dL (0.6-1.0) Estimated GFR (Cockcroft-Gault) 76.9 Glucose Level 94 mg/dL (70-99) Calcium Level 8.6 mg/dL (8.5-10.1) Magnesium Level 1.4 mg/dL (1.8-2.4) Troponin I Quantitative 0.051 ng/mL (0.000-0.055) VA-Ydn-Q-Type Natriuretic Peptide 5287 pg/mL (0-124) Triglycerides Level 56 mg/dL (0-150) Cholesterol Level 99 mg/dL (0-200) LDL Cholesterol, Calculated 66 mg/dL (0-100) VLDL Cholesterol, Calculated 11 mg/dL (0-40) Non-HDL Cholesterol Calculated 77 mg/dL (0-129) HDL Cholesterol 22 mg/dL (40-60) Cholesterol/HDL Ratio 4.5 Thyroid Stimulating Hormone (TSH) < 0.007 uIU/mL (0.358-3.74) Laboratory Tests Test 10/08/19 14:40 10/08/19 14:45 10/08/19 15:50 10/08/19 15:52 White Blood Count 6.2 x10^3/uL (4.0-11.0) Red Blood Count 4.67 x10^6/uL (3.50-5.40) Hemoglobin 12.9 g/dL (12.0-15.5) Hematocrit 39.5 % (36.0-47.0) Mean Corpuscular Volume 85 fL (79-100) Mean Corpuscular Hemoglobin 28 pg (25-35) Mean Corpuscular Hemoglobin Concent 33 g/dL (31-37) Red Cell Distribution Width 14.2 % (11.5-14.5) Platelet Count 249 x10^3/uL (140-400) Neutrophils (%) (Auto) 33 % (31-73) Lymphocytes (%) (Auto) 52 % (24-48) Monocytes (%) (Auto) 14 % (0-9) Eosinophils (%) (Auto) 0 % (0-3) Basophils (%) (Auto) 1 % (0-3) Neutrophils # (Auto) 2.0 x10^3/uL (1.8-7.7) Lymphocytes # (Auto) 3.2 x10^3/uL (1.0-4.8) Monocytes # (Auto) 0.9 x10^3/uL (0.0-1.1) Eosinophils # (Auto) 0.0 x10^3/uL (0.0-0.7) Basophils # (Auto) 0.1 x10^3/uL (0.0-0.2) Prothrombin Time 14.8 SEC (11.7-14.0) Prothromb Time International Ratio 1.2 (0.8-1.1) Activated Partial Thromboplast Time 28 SEC (24-38) D-Dimer (Paola) 1.82 ug/mlFEU (0.00-0.50) Sodium Level 140 mmol/L (136-145) Potassium Level 2.8 mmol/L (3.5-5.1) Chloride Level 102 mmol/L (98-107) Carbon Dioxide Level 29 mmol/L (21-32) Anion Gap 9 (6-14) Blood Urea Nitrogen 9 mg/dL (7-20) Creatinine 0.6 mg/dL (0.6-1.0) Estimated GFR (Cockcroft-Gault) 107.2 BUN/Creatinine Ratio 15 (6-20) Glucose Level 133 mg/dL (70-99) Calcium Level 9.0 mg/dL (8.5-10.1) Magnesium Level 1.3 mg/dL (1.8-2.4) Total Bilirubin 1.2 mg/dL (0.2-1.0) Aspartate Amino Transf (AST/SGOT) 35 U/L (15-37) Alanine Aminotransferase (ALT/SGPT) 36 U/L (14-59) Alkaline Phosphatase 182 U/L (46-116) Creatine Kinase 74 U/L (26-192) Creatine Kinase MB (Mass) 1.5 ng/mL (0.0-3.6) Creatine Kinase MB Relative Index % (0-4) Troponin I Quantitative 0.061 ng/mL (0.000-0.055) AH-Sai-I-Type Natriuretic Peptide 9151 pg/mL (0-124) Total Protein 6.6 g/dL (6.4-8.2) Albumin 2.7 g/dL (3.4-5.0) Albumin/Globulin Ratio 0.7 (1.0-1.7) Urine Opiates Screen Neg (NEG) Urine Methadone Screen Neg (NEG) Urine Barbiturates Neg (NEG) Urine Phencyclidine Screen Neg (NEG) Urine Amphetamine/Methamphetamine Neg (NEG) Urine Benzodiazepines Screen Neg (NEG) Urine Cocaine Screen Pos (NEG) Urine Cannabinoids Screen Pos (NEG) Urine Ethyl Alcohol Neg (NEG) Influenza Type A Antigen Negative (NEGATIVE) Influenza Type B Antigen Negative (NEGATIVE) Coronavirus (COVID-19)(PCR) See separate report Test 10/08/19 15:55 10/09/19 11:10 Urine Collection Type Unknown Urine Color Yellow Urine Clarity Clear Urine pH 7.0 (<5.0-8.0) Urine Specific [place] <=1.005 (1.000-1.030) Urine Protein Negative mg/dL (NEG-TRACE) Urine Glucose (UA) Negative mg/dL (NEG) Urine Ketones (Stick) Negative mg/dL (NEG) Urine Blood Negative (NEG) Urine Nitrite Negative (NEG) Urine Bilirubin Negative (NEG) Urine Urobilinogen Dipstick 2.0 mg/dL (0.2 mg/dL) Urine Leukocyte Esterase Trace (NEG) Urine RBC 0 /HPF (0-2) Urine WBC 1-4 /HPF (0-4) Urine Squamous Epithelial Cells Few /LPF Urine Bacteria Moderate /HPF (0-FEW) Sodium Level 144 mmol/L (136-145) Potassium Level 4.2 mmol/L (3.5-5.1) Chloride Level 106 mmol/L (98-107) Carbon Dioxide Level 31 mmol/L (21-32) Anion Gap 7 (6-14) Blood Urea Nitrogen 16 mg/dL (7-20) Creatinine 0.8 mg/dL (0.6-1.0) Estimated GFR (Cockcroft-Gault) 76.9 Glucose Level 94 mg/dL (70-99) Calcium Level 8.6 mg/dL (8.5-10.1) Magnesium Level 1.4 mg/dL (1.8-2.4) Troponin I Quantitative 0.051 ng/mL (0.000-0.055) JR-Znv-K-Type Natriuretic Peptide 5287 pg/mL (0-124) Triglycerides Level 56 mg/dL (0-150) Cholesterol Level 99 mg/dL (0-200) LDL Cholesterol, Calculated 66 mg/dL (0-100) VLDL Cholesterol, Calculated 11 mg/dL (0-40) Non-HDL Cholesterol Calculated 77 mg/dL (0-129) HDL Cholesterol 22 mg/dL (40-60) Cholesterol/HDL Ratio 4.5 Thyroid Stimulating Hormone (TSH) < 0.007 uIU/mL (0.358-3.74) Brief Hospital Course Ms. Marrero is a 48 old female who presented with shortness of breath, most likely secondary to her habits on her personal life. Patient smokes quite a bit and besides the cigarette she indulges in marijuana and cocaine snorting. Patient most likely has cardiomyopathy as a consequence of her choices in life. Patient was quite upset this morning because her breakfast was cold and she did not experience any chest discomfort palpitations no shortness of breath she notes she was screaming at the top of the lungs while a code mindy was being called due to her violent behavior. We tried to the best of our abilities to address her needs and finally she calmed down and was able to accept our suggestion on continuing with her work-up she initially had a mildly elevated troponin which is now normal her BNP was initially at 9000 and was brought down to 5000 level after diuresis. Patient most likely will require ongoing diuresis moving forward and LEANN inhibitors plus minus beta-blockers. Cardiology consultation has been requested and they are in the process of finalizing their assessment and at the time of this note I am awaiting for their final recommendations if our bank consultant deems the patient appropriate for discharge will be dismissing the patient home with instructions to follow-up with them in the outpatient setting and also will send a referral for endocrinology given the abnormal findings of thyroid function tests ordered by our eco industrial development consultant. Lungs are clear to auscultation bilaterally and good inspiratory effort was noted cardiovascular exam was normal S1-S2 regular rhythm tachycardic of course most likely as a consequence of her cocaine abuse and of course her outburst of anger that she experienced this morning as well Discharge Information Condition at Discharge: Improved Follow Up: Weeks Disposition/Orders: D/C to Home Scheduled Cephalexin (Keflex) 500 Mg Capsule, 1 CAP PO TID for 10 Days, #30 Ref 0 Prescribed by: LUÍS PERRY APRN on 04/12/191517 Last Action: HELD on 10/08/191607 by MARY WILKINS MD Clotrimazole/Betamethasone Dip (Clotrimazole-Betamethasone Crm) 15 Gm Cream..g., 1 CELINE TP BID, #30 Ref 1 Prescribed by: LUÍS PERRY APRN on 04/12/191517 Last Action: Continued on 10/08/191608 by MARY WILKINS MD Cyclobenzaprine Hcl (Cyclobenzaprine Hcl) 5 Mg Tablet, 1 TAB PO QHS, #15 Prescribed by: SMITH PETTIT APRN on 10/23/17 0748 Last Action: Converted on 10/08/191608 by MARY WILKINS MD Naproxen (Naprosyn) 500 Mg Tablet, 1 TAB PO BID, #30 Ref 1 Prescribed by: CHETNA MCNULTY MD on 07/02/17 0001 Last Action: Continued on 10/08/191608 by MARY WILKINS MD Naproxen (Naprosyn) 500 Mg Tablet, 1 TAB PO BID, #30 Ref 1 Prescribed by: SMITH PETTIT APRN on 10/23/17 0748 Last Action: HELD on 10/08/191607 by MARY WILKINS MD Sulfamethoxazole/Trimethoprim (Bactrim Ds Tablet) 1 Each Tablet, 1 TAB PO BID, #14 Ref 0 Prescribed by: LISBETH JONES APRN on 08/05/18 193 Last Action: HELD on 10/08/191607 by MARY WILKINS MD Triamcinolone Acetonide (Triamcinolone Acetonide 0.1% Oint) 15 Gm Oint...g., 1 CELINE TP BID for WOUND CARE, #1 MIX WITH EUCERIN DIRECTED BY PHYSICIAN Prescribed by: SMITH PETTIT APRN on 10/23/17 0749 Last Action: Continued on 10/08/191608 by MARY WILKINS MD Triamcinolone Acetonide (Triamcinolone Acetonide 0.025% Cream) 15 Gm Cream..g., 1 CELINE TP BID, #30 Prescribed by: BRAULIO FARRELL MD on 02/17/192147 Last Action: Converted on 10/08/191608 by MARY WILKINS MD Scheduled PRN Cyclobenzaprine Hcl (Cyclobenzaprine Hcl) 10 Mg Tablet, 10 MG PO TID PRN for muscle spasm, #30 Prescribed by: ODILON WREN APRN on 05/29/171657 Last Action: Continued on 10/08/191608 by MARY WILKINS MD Naproxen (Naprosyn) 500 Mg Tablet, 500 MG PO BID PRN for PAIN, #20 Prescribed by: ODILON WREN APRN on 05/29/171657 Last Action: HELD on 10/08/191607 by MARY WILKINS MD Tramadol Hcl (Tramadol Hcl) 50 Mg Tablet, 50 MG PO Q6H PRN for PAIN for 3 Days, #15 Ref 0 Prescribed by: SACHIN MARTIN on 2/18/20 2343 Last Action: Continued on 10/08/191608 by MARY WILKINS MD Miscellaneous Medications Info (No Known Medications Prior To Admisstion) Each, 1 EACH MC, (Reported) Entered as Reported by: KELVIN NEWTON on 09/06/14 1402 Last Action: HELD on 10/08/191607 by MD FRANKY REINOSO HECTOR M MD Oct 09, 2019 12:25
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
[2019-10-09] MEDS ORDERED: MAGNESIUM SULFATE 4GM 100 ML IV ONE (13:00)
--- NOTE | 2019-10-09 13:07 | CARD ---
MR#: [id number] Date of Study: 10/09/2019 Ordering Physician: JESSICA ZAMORANO, Referring Physician: JESSICA ZAMORANO Tech: Malika Anderson [facility] APPROVED REPORT EXAM: Two-dimensional and M-mode echocardiogram with Doppler and color Doppler. Other Information Quality : Good INDICATION Cardiomyopathy RISK FACTORS Smoking 2D DIMENSIONS RVDd3.0 (2.9-3.5cm)Left Atrium(2D)3.4 (1.6-4.0cm) IVSd1.0 (0.7-1.1cm)Aortic Root(2D)2.7 (2.0-3.7cm) LVDd5.5 (3.9-5.9cm)LVOT Diameter2.2 (1.8-2.4cm) PWd1.1 (0.7-1.1cm)LVDs5.0 (2.5-4.0cm) FS (%) 10.0 %LVEF(%)20.0 (>50%) Aortic Valve SARABJIT (VTI)2.70cm2 Tricuspid Valve TR P. [id number] TR Peak [id number] LEFT VENTRICLE The left ventricle is normal size. There is normal left ventricular wall thickness. Left ventricle sy stolic function is severely impaired. The Ejection Fraction is 15-20%. There is severe global hypokin esis of the left ventricle. Septal motion consistent with conduction abnormality. Transmitral Doppler flow pattern is Grade II-pseudonormal filling dynamics. RIGHT VENTRICLE The right ventricle is normal size. The right ventricular systolic function is normal. ATRIA The left atrium is mildly dilated. The right atrium is mildly dilated. The interatrial septum is inta ct with no evidence for an atrial septal defect or patent foramen ovale as noted on 2-D or Doppler im aging. AORTIC VALVE The aortic valve is normal in structure and function. Doppler and Color Flow revealed no significant aortic regurgitation. There is no significant aortic valvular stenosis. MITRAL VALVE The mitral valve is thickened but opens well. There is no evidence of mitral valve prolapse. There is no mitral valve stenosis. Doppler and Color-flow revealed moderate mitral regurgitation. TRICUSPID VALVE The tricuspid valve is normal in structure and function. Doppler and Color Flow revealed mild to mode rate tricuspid regurgitation. There is moderate pulmonary hypertension. The PA pressure was estimated at 42 mmHg. There is no tricuspid valve stenosis. PULMONIC VALVE The pulmonary valve is normal in structure and function. Doppler and Color Flow revealed mild pulmoni c valvular regurgitation. There is no pulmonic valvular stenosis. GREAT VESSELS The aortic root is normal in size. The ascending aorta is normal in size. The IVC is normal in size a nd collapses <50% with inspiration. PERICARDIAL EFFUSION There is no evidence of significant pericardial effusion. Critical Notification Critical Value: No <Conclusion> Left ventricle systolic function is severely impaired. The Ejection Fraction is 15-20%. Moderate mitral regurgitation. Mild to moderate tricuspid regurgitation. The PA pressure was estimated at 42 mmHg. There is no evidence of significant pericardial effusion. Signed by : Keith Hernandez, Electronically Approved : 10/09/2019 13:07:04
--- NOTE | 2019-10-09 14:18 | NUR ---
SS following for discharge planning. SS discussed with pt RN and reviewed pt chart. Pt is from home and is currently requiring oxygen. Pt is self pay pt and COVID19 negative. Pt has history of cocaine use. SS will continue to follow for discharge planning.
[2019-10-09] MEDS ORDERED: FUROSEMIDE 40 MG TABLET. PO ONE (14:30)
--- NOTE | 2019-10-09 14:46 | PDOC ---
PROGRESS NOTES Chief Complaint Chief Complaint Dyspnea secondary to most likely acute COPD exacerbation Cocaine abuse with subsequent elevation in troponin secondary to demand ischemia most likely Hyperthyroidism etiology undetermined Elevated BNP with no history of congestive heart failure Tobacco abuse Marijuana abuse Hypokalemia History of chronic back pain without alarming signs Plan start beta terrence as per budget consultant will order uptake scan and thyroid ultrasound Replace electrolytes Resume home medication Further recommendations based on the clinical course Please see orders for detail DVT prophylaxis with Lovenox History of Present Illness History of Present Illness Code jumana had to be called,, I assisted with the nursing machine setter supervisor in calming the patient down. Patient ECHO and thyroid function tests have been noted, work up ongoing, discussed with budget consultant. Appreciate cardiology input Vitals Vitals Vital Signs Date Time Temp Pulse Resp B/P (MAP) Pulse Ox O2 Delivery O2 Flow Rate FiO2 10/09/19 08:00 Room Air 10/09/19 07:00 97.5 116 125/97 (106) 100 2.0 97.5 10/09/19 03:00 20 Physical Exam General: Alert, Oriented X3, Cooperative Heart: Regular rate (Sinus tach), Normal S1, Normal S2, Other (3/6 systolic murmur to LLS border; S3) Abdomen: Soft, No tenderness Extremities: No cyanosis, No edema Skin: No breakdown, No significant lesion Labs LABS Laboratory Tests Test 10/08/19 14:45 10/08/19 15:50 10/08/19 15:52 10/08/19 15:55 Urine Opiates Screen Neg (NEG) Urine Methadone Screen Neg (NEG) Urine Barbiturates Neg (NEG) Urine Phencyclidine Screen Neg (NEG) Urine Amphetamine/Methamphetamine Neg (NEG) Urine Benzodiazepines Screen Neg (NEG) Urine Cocaine Screen Pos (NEG) Urine Cannabinoids Screen Pos (NEG) Urine Ethyl Alcohol Neg (NEG) Influenza Type A Antigen Negative (NEGATIVE) Influenza Type B Antigen Negative (NEGATIVE) Coronavirus (COVID-19)(PCR) See separate report Urine Collection Type Unknown Urine Color Yellow Urine Clarity Clear Urine pH 7.0 (<5.0-8.0) Urine Specific [place] <=1.005 (1.000-1.030) Urine Protein Negative mg/dL (NEG-TRACE) Urine Glucose (UA) Negative mg/dL (NEG) Urine Ketones (Stick) Negative mg/dL (NEG) Urine Blood Negative (NEG) Urine Nitrite Negative (NEG) Urine Bilirubin Negative (NEG) Urine Urobilinogen Dipstick 2.0 mg/dL (0.2 mg/dL) Urine Leukocyte Esterase Trace (NEG) Urine RBC 0 /HPF (0-2) Urine WBC 1-4 /HPF (0-4) Urine Squamous Epithelial Cells Few /LPF Urine Bacteria Moderate /HPF (0-FEW) Test 10/09/19 11:10 Sodium Level 144 mmol/L (136-145) Potassium Level 4.2 mmol/L (3.5-5.1) Chloride Level 106 mmol/L (98-107) Carbon Dioxide Level 31 mmol/L (21-32) Anion Gap 7 (6-14) Blood Urea Nitrogen 16 mg/dL (7-20) Creatinine 0.8 mg/dL (0.6-1.0) Estimated GFR (Cockcroft-Gault) 76.9 Glucose Level 94 mg/dL (70-99) Calcium Level 8.6 mg/dL (8.5-10.1) Magnesium Level 1.4 mg/dL (1.8-2.4) Troponin I Quantitative 0.051 ng/mL (0.000-0.055) OB-Grj-B-Type Natriuretic Peptide 5287 pg/mL (0-124) Triglycerides Level 56 mg/dL (0-150) Cholesterol Level 99 mg/dL (0-200) LDL Cholesterol, Calculated 66 mg/dL (0-100) VLDL Cholesterol, Calculated 11 mg/dL (0-40) Non-HDL Cholesterol Calculated 77 mg/dL (0-129) HDL Cholesterol 22 mg/dL (40-60) Cholesterol/HDL Ratio 4.5 Thyroid Stimulating Hormone (TSH) < 0.007 uIU/mL (0.358-3.74) Free Thyroxine 3.83 ng/dL (0.76-1.46) Free Triiodothyronine (T3) pg/mL 11.70 pg/mL (2.18-3.98) Assessment and Plan Assessmemt and Plan Problems Medical Problems: (1) Acute heart failure Status: Acute (2) Cocaine abuse Status: Acute (3) Shortness of breath Status: Acute (4) Suspected COVID-19 virus infection Status: Acute Comment Review of Relevant I have reviewed the following items genaro (where applicable) has been applied. Labs Laboratory Tests Test 10/08/19 14:40 10/08/19 14:45 10/08/19 15:50 10/08/19 15:52 White Blood Count 6.2 x10^3/uL (4.0-11.0) Red Blood Count 4.67 x10^6/uL (3.50-5.40) Hemoglobin 12.9 g/dL (12.0-15.5) Hematocrit 39.5 % (36.0-47.0) Mean Corpuscular Volume 85 fL (79-100) Mean Corpuscular Hemoglobin 28 pg (25-35) Mean Corpuscular Hemoglobin Concent 33 g/dL (31-37) Red Cell Distribution Width 14.2 % (11.5-14.5) Platelet Count 249 x10^3/uL (140-400) Neutrophils (%) (Auto) 33 % (31-73) Lymphocytes (%) (Auto) 52 % (24-48) Monocytes (%) (Auto) 14 % (0-9) Eosinophils (%) (Auto) 0 % (0-3) Basophils (%) (Auto) 1 % (0-3) Neutrophils # (Auto) 2.0 x10^3/uL (1.8-7.7) Lymphocytes # (Auto) 3.2 x10^3/uL (1.0-4.8) Monocytes # (Auto) 0.9 x10^3/uL (0.0-1.1) Eosinophils # (Auto) 0.0 x10^3/uL (0.0-0.7) Basophils # (Auto) 0.1 x10^3/uL (0.0-0.2) Prothrombin Time 14.8 SEC (11.7-14.0) Prothromb Time International Ratio 1.2 (0.8-1.1) Activated Partial Thromboplast Time 28 SEC (24-38) D-Dimer (Paola) 1.82 ug/mlFEU (0.00-0.50) Sodium Level 140 mmol/L (136-145) Potassium Level 2.8 mmol/L (3.5-5.1) Chloride Level 102 mmol/L (98-107) Carbon Dioxide Level 29 mmol/L (21-32) Anion Gap 9 (6-14) Blood Urea Nitrogen 9 mg/dL (7-20) Creatinine 0.6 mg/dL (0.6-1.0) Estimated GFR (Cockcroft-Gault) 107.2 BUN/Creatinine Ratio 15 (6-20) Glucose Level 133 mg/dL (70-99) Calcium Level 9.0 mg/dL (8.5-10.1) Magnesium Level 1.3 mg/dL (1.8-2.4) Total Bilirubin 1.2 mg/dL (0.2-1.0) Aspartate Amino Transf (AST/SGOT) 35 U/L (15-37) Alanine Aminotransferase (ALT/SGPT) 36 U/L (14-59) Alkaline Phosphatase 182 U/L (46-116) Creatine Kinase 74 U/L (26-192) Creatine Kinase MB (Mass) 1.5 ng/mL (0.0-3.6) Creatine Kinase MB Relative Index % (0-4) Troponin I Quantitative 0.061 ng/mL (0.000-0.055) RX-Uag-U-Type Natriuretic Peptide 9151 pg/mL (0-124) Total Protein 6.6 g/dL (6.4-8.2) Albumin 2.7 g/dL (3.4-5.0) Albumin/Globulin Ratio 0.7 (1.0-1.7) Urine Opiates Screen Neg (NEG) Urine Methadone Screen Neg (NEG) Urine Barbiturates Neg (NEG) Urine Phencyclidine Screen Neg (NEG) Urine Amphetamine/Methamphetamine Neg (NEG) Urine Benzodiazepines Screen Neg (NEG) Urine Cocaine Screen Pos (NEG) Urine Cannabinoids Screen Pos (NEG) Urine Ethyl Alcohol Neg (NEG) Influenza Type A Antigen Negative (NEGATIVE) Influenza Type B Antigen Negative (NEGATIVE) Coronavirus (COVID-19)(PCR) See separate report Test 10/08/19 15:55 10/09/19 11:10 Urine Collection Type Unknown Urine Color Yellow Urine Clarity Clear Urine pH 7.0 (<5.0-8.0) Urine Specific [place] <=1.005 (1.000-1.030) Urine Protein Negative mg/dL (NEG-TRACE) Urine Glucose (UA) Negative mg/dL (NEG) Urine Ketones (Stick) Negative mg/dL (NEG) Urine Blood Negative (NEG) Urine Nitrite Negative (NEG) Urine Bilirubin Negative (NEG) Urine Urobilinogen Dipstick 2.0 mg/dL (0.2 mg/dL) Urine Leukocyte Esterase Trace (NEG) Urine RBC 0 /HPF (0-2) Urine WBC 1-4 /HPF (0-4) Urine Squamous Epithelial Cells Few /LPF Urine Bacteria Moderate /HPF (0-FEW) Sodium Level 144 mmol/L (136-145) Potassium Level 4.2 mmol/L (3.5-5.1) Chloride Level 106 mmol/L (98-107) Carbon Dioxide Level 31 mmol/L (21-32) Anion Gap 7 (6-14) Blood Urea Nitrogen 16 mg/dL (7-20) Creatinine 0.8 mg/dL (0.6-1.0) Estimated GFR (Cockcroft-Gault) 76.9 Glucose Level 94 mg/dL (70-99) Calcium Level 8.6 mg/dL (8.5-10.1) Magnesium Level 1.4 mg/dL (1.8-2.4) Troponin I Quantitative 0.051 ng/mL (0.000-0.055) OO-Ext-M-Type Natriuretic Peptide 5287 pg/mL (0-124) Triglycerides Level 56 mg/dL (0-150) Cholesterol Level 99 mg/dL (0-200) LDL Cholesterol, Calculated 66 mg/dL (0-100) VLDL Cholesterol, Calculated 11 mg/dL (0-40) Non-HDL Cholesterol Calculated 77 mg/dL (0-129) HDL Cholesterol 22 mg/dL (40-60) Cholesterol/HDL Ratio 4.5 Thyroid Stimulating Hormone (TSH) < 0.007 uIU/mL (0.358-3.74) Free Thyroxine 3.83 ng/dL (0.76-1.46) Free Triiodothyronine (T3) pg/mL 11.70 pg/mL (2.18-3.98) Laboratory Tests Test 10/08/19 14:45 10/08/19 15:50 10/08/19 15:52 10/08/19 15:55 Urine Opiates Screen Neg (NEG) Urine Methadone Screen Neg (NEG) Urine Barbiturates Neg (NEG) Urine Phencyclidine Screen Neg (NEG) Urine Amphetamine/Methamphetamine Neg (NEG) Urine Benzodiazepines Screen Neg (NEG) Urine Cocaine Screen Pos (NEG) Urine Cannabinoids Screen Pos (NEG) Urine Ethyl Alcohol Neg (NEG) Influenza Type A Antigen Negative (NEGATIVE) Influenza Type B Antigen Negative (NEGATIVE) Coronavirus (COVID-19)(PCR) See separate report Urine Collection Type Unknown Urine Color Yellow Urine Clarity Clear Urine pH 7.0 (<5.0-8.0) Urine Specific [place] <=1.005 (1.000-1.030) Urine Protein Negative mg/dL (NEG-TRACE) Urine Glucose (UA) Negative mg/dL (NEG) Urine Ketones (Stick) Negative mg/dL (NEG) Urine Blood Negative (NEG) Urine Nitrite Negative (NEG) Urine Bilirubin Negative (NEG) Urine Urobilinogen Dipstick 2.0 mg/dL (0.2 mg/dL) Urine Leukocyte Esterase Trace (NEG) Urine RBC 0 /HPF (0-2) Urine WBC 1-4 /HPF (0-4) Urine Squamous Epithelial Cells Few /LPF Urine Bacteria Moderate /HPF (0-FEW) Test 10/09/19 11:10 Sodium Level 144 mmol/L (136-145) Potassium Level 4.2 mmol/L (3.5-5.1) Chloride Level 106 mmol/L (98-107) Carbon Dioxide Level 31 mmol/L (21-32) Anion Gap 7 (6-14) Blood Urea Nitrogen 16 mg/dL (7-20) Creatinine 0.8 mg/dL (0.6-1.0) Estimated GFR (Cockcroft-Gault) 76.9 Glucose Level 94 mg/dL (70-99) Calcium Level 8.6 mg/dL (8.5-10.1) Magnesium Level 1.4 mg/dL (1.8-2.4) Troponin I Quantitative 0.051 ng/mL (0.000-0.055) MA-Zzq-E-Type Natriuretic Peptide 5287 pg/mL (0-124) Triglycerides Level 56 mg/dL (0-150) Cholesterol Level 99 mg/dL (0-200) LDL Cholesterol, Calculated 66 mg/dL (0-100) VLDL Cholesterol, Calculated 11 mg/dL (0-40) Non-HDL Cholesterol Calculated 77 mg/dL (0-129) HDL Cholesterol 22 mg/dL (40-60) Cholesterol/HDL Ratio 4.5 Thyroid Stimulating Hormone (TSH) < 0.007 uIU/mL (0.358-3.74) Free Thyroxine 3.83 ng/dL (0.76-1.46) Free Triiodothyronine (T3) pg/mL 11.70 pg/mL (2.18-3.98) Medications Current Medications Lorazepam (Ativan) 1 mg 1X ONCE PO Last administered on 10/08/19at 13:50; Start 10/08/19 at 13:45; Stop 10/08/19 at 13:46; Status DC Fentanyl Citrate (Fentanyl 2ml Vial) 50 mcg 1X ONCE IV Last administered on 10/08/19at 15:39; Start 10/08/19 at 15:15; Stop 10/08/19 at 15:16; Status DC Fentanyl Citrate (Fentanyl 2ml Vial) 50 mcg 1X ONCE IVP ; Start 10/08/19 at 15:15; Stop 10/08/19 at 15:16; Status Cancel Potassium Chloride (Klor-Con) 40 meq 1X ONCE PO Last administered on 10/08/19at 15:36; Start 10/08/19 at 15:15; Stop 10/08/19 at 15:18; Status DC Furosemide (Lasix) 20 mg 1X ONCE IVP Last administered on 10/08/19at 15:42; Start 10/08/19 at 15:30; Stop 10/08/19 at 15:31; Status DC Potassium Chloride/Water 100 ml @ 100 mls/hr Q1H IV Last administered on 10/08/19at 17:18; Start 10/08/19 at 15:30; Stop 10/08/19 at 17:29; Status DC Fentanyl Citrate (Fentanyl 2ml Vial) 50 mcg PRN Q1HR PRN IV PAIN; Start 10/08/19 at 15:45; Stop 10/09/19 at 15:44 Ondansetron HCl (Zofran) 4 mg PRN Q4HRS PRN IV NAUSEA/VOMITING; Start 10/08/19 at 16:15 Zolpidem Tartrate (Ambien) 5 mg PRN QHS PRN PO INSOMNIA Last administered on 10/08/19at 21:14; Start 10/08/19 at 16:15 Acetaminophen (Tylenol) 650 mg PRN Q4HRS PRN PO TEMP OVER 100.4F OR MILD PAIN; Start 10/08/19 at 16:15 Docusate Sodium (Colace) 100 mg PRN BID PRN PO CONSTIPATION; Start 10/08/19 at 16:15 Albuterol Sulfate (Ventolin Neb Soln) 2.5 mg PRN Q4HRS PRN NEB SHORTNESS OF BREATH; Start 10/08/19 at 16:15 Guaifenesin (Robitussin) 200 mg PRN Q4HRS PRN PO COUGH; Start 10/08/19 at 16:15 Lorazepam (Ativan) 1 mg PRN Q4HRS PRN PO ANXIETY / AGITATION; Start 10/08/19 at 16:15 Enoxaparin Sodium (Lovenox 40mg Syringe) 40 mg Q24H SQ Last administered on 10/08/19at 21:01; Start 10/08/19 at 21:00 Betamethasone/ Clotrimazole (Lotrisone) 1 addy BID TP ; Start 10/08/19 at 21:00; Status UNV Cyclobenzaprine HCl (Flexeril) 10 mg PRN TID PRN PO muscle spasm; Start 10/08/19 at 16:15 Naproxen (Naprosyn) 500 mg BID PO Last administered on 10/09/19at 08:36; Start 10/08/19 at 21:00; Stop 10/09/19 at 14:20; Status DC Tramadol HCl (Ultram) 50 mg PRN Q6HRS PRN PO MODERATE-SEVERE PAIN; Start 10/08/19 at 16:15 Triamcinolone Acetonide (Kenalog 0.1%) 1 addy BID TP ; Start 10/08/19 at 21:00; Status UNV Cyclobenzaprine HCl (Flexeril) 5 mg QHS PO Last administered on 10/08/19at 21:01; Start 10/08/19 at 21:00 Non-Formulary Medication (Triamcinolone Acetonide (Triamcinolone Acetonide 0.025% Cream)) 1 addy BID TP ; Start 10/08/19 at 21:00; Status UNV Iohexol (Omnipaque 350 Mg/ml) 100 ml 1X ONCE IV ; Start 10/08/19 at 17:45; Stop 10/08/19 at 17:46; Status DC Info (CONTRAST GIVEN -- Rx MONITORING) 1 each PRN DAILY PRN MC SEE COMMENTS; Start 10/08/19 at 17:45; Stop 10/10/19 at 17:44 Potassium Chloride (Klor-Con) 40 meq Q2H PO Last administered on 10/09/19at 00:25; Start 10/08/19 at 21:00; Stop 10/09/19 at 01:01; Status DC Magnesium Sulfate 100 ml @ 25 mls/hr 1X ONCE IV Last administered on 10/09/19at 12:51; Start 10/09/19 at 13:00; Stop 10/09/19 at 16:59 Carvedilol (Coreg) 3.125 mg BIDWMEALS PO ; Start 10/09/19 at 17:00 Lisinopril (Prinivil) 5 mg DAILY PO ; Start 10/10/19 at 09:00 Furosemide (Lasix) 40 mg 1X ONCE PO ; Start 10/09/19 at 14:30; Stop 10/09/19 at 14:31; Status DC Active Scripts Active Tramadol Hcl 50 Mg Tablet 50 Mg PO Q6H PRN 3 Days Keflex (Cephalexin) 500 Mg Capsule 1 Cap PO TID 10 Days Clotrimazole-Betamethasone Crm (Clotrimazole/Betamethasone Dip) 15 Gm Cream..g. 1 Addy TP BID Triamcinolone Acetonide 0.025% Cream (Triamcinolone Acetonide) 15 Gm Cream..g. 1 Addy TP BID Bactrim Ds Tablet (Sulfamethoxazole/Trimethoprim) 1 Each Tablet 1 Tab PO BID Triamcinolone Acetonide 0.1% Oint (Triamcinolone Acetonide) 15 Gm Oint...g. 1 Addy TP BID MIX WITH EUCERIN DIRECTED BY PHYSICIAN Naprosyn (Naproxen) 500 Mg Tablet 1 Tab PO BID Cyclobenzaprine Hcl 5 Mg Tablet 1 Tab PO QHS Naprosyn (Naproxen) 500 Mg Tablet 1 Tab PO BID Naprosyn (Naproxen) 500 Mg Tablet 500 Mg PO BID PRN Cyclobenzaprine Hcl 10 Mg Tablet 10 Mg PO TID PRN Reported No Known Medications Prior To Admisstion (Info) Each 1 Each Vitals/I & O Vital Sign - Last 24 Hours 10/08/19 10/08/19 10/08/19 10/08/19 15:25 15:39 15:59 16:29 Pulse 93 126 128 Resp 20 18 20 20 B/P (MAP) 146/95 (112) 163/110 (127) 164/118 (133) Pulse Ox 95 O2 Delivery Room Air O2 Flow Rate 93.0 10/08/19 10/08/19 10/08/19 10/08/19 16:59 17:20 17:29 19:00 Temp 97.7 97.7 Pulse 122 118 108 123 Resp 20 20 B/P (MAP) 163/110 (127) 139/105 (116) 140/104 (116) 132/98 (109) Pulse Ox 100 O2 Delivery Nasal Cannula O2 Flow Rate 2.0 10/08/19 10/08/19 10/09/19 10/09/19 20:00 23:00 03:00 07:00 Temp 98.0 98.4 97.5 98.0 98.4 97.5 Pulse 107 112 116 Resp 20 B/P (MAP) 136/90 (105) 114/73 (87) 125/97 (106) Pulse Ox 98 94 100 O2 Delivery Nasal Cannula Nasal Cannula Nasal Cannula Nasal Cannula O2 Flow Rate 2.0 2.0 2.0 2.0 10/09/19 08:00 O2 Delivery Room Air Intake and Output 10/08/19 10/08/19 10/09/19 14:59 22:59 06:59 Intake Total 310 ml 360 ml Output Total 100 ml Balance 310 ml 260 ml MARY WILKINS MD Oct 09, 2019 14:46
[2019-10-09 15:00] VITALS: BP 124/89
[2019-10-09] MEDS ORDERED: CARVEDILOL 3.125 MG TABLET. PO SCH (17:00)
--- NOTE | 2019-10-09 19:00 | NUR ---
transfer from [address] [place] [address] via wheelchair pt alert and oriented no complain at this time
[2019-10-09 19:13] VITALS: BP 140/89
[2019-10-09] MEDS: ZOLPIDEM 5 MG TABLET. PO PRN (20:56)
[2019-10-09] MEDS: ENOXAPARIN 40 MG/0.4 ML SYRINGE. SQ SCH (20:56)
[2019-10-09] MEDS: CYCLOBENZAPRINE 10 MG TABLET. PO SCH (20:56)
[2019-10-09 23:00] VITALS: BP 122/81
[2019-10-10 03:30] VITALS: BP 126/94
--- NOTE | 2019-10-10 05:43 | NUR ---
pt had period of restlessness taking off gown and heart monitor reorient frequently during the night
[2019-10-10 07:00] VITALS: BP 124/89
[2019-10-10] MEDS ORDERED: LISINOPRIL 5 MG TABLET. PO SCH (09:00)
[2019-10-10 11:00] VITALS: BP 118/81
--- NOTE | 2019-10-10 11:25 | RAD ---
EXAM: Thyroid sonogram. HISTORY: Hyperthyroidism. TECHNIQUE: Sonographic imaging of the thyroid was performed. COMPARISON: None. FINDINGS: The right thyroid lobe measures 6.6 x 2.4 x 2.6 cm. The left thyroid lobe measures 5.1 x 2.5 x 1.9 cm. The thyroid isthmus measures 9.5 mm. The thyroid parenchyma is diffusely heterogeneous. No discrete nodule is seen. IMPRESSION: Diffusely heterogeneous enlarged thyroid. This can be seen with thyroiditis. No discrete nodule is seen. Electronically signed by: Ana Kelley MD (10/10/2019 11:22 AM) [email or web address]
[2019-10-10] MEDS ORDERED: FUROSEMIDE 20 MG TABLET PO SCH (11:45)
--- NOTE | 2019-10-10 11:49 | PDOC ---
CARDIO Progress Notes Date and Time Date of Service 10/10/2019 Time of Evaluation 1010 Subjective Subjective: No Chest Pain, No shortness of breath, No Palpitations, Other (feels anxious, citing EF at 20%) Vitals Vitals Vital Signs Date Time Temp Pulse Resp B/P (MAP) Pulse Ox O2 Delivery O2 Flow Rate FiO2 10/10/19 10:00 100 Nasal Cannula 2.0 10/10/19 08:48 18 10/10/19 08:43 111 124/89 10/10/19 07:00 97.3 97.3 Weight Weight [ ] Input and Output Intake and Output Intake and Output 10/10/19 07:00 Intake Total 1260 ml Output Total 550 ml Balance 710 ml Intake Oral 1260 ml Output Urine Total 550 ml # Voids 1 Physical Exam HEENT: Neck Supple W Full Motion Chest: Symmetric LUNGS: Clear to Auscultation Heart: RRR (SR/ST) Abdomen: Soft N/T Extremities: No Edema, No Calf Tenderness Neurology: alert, oriented, follow commands Assessment Assessment 1. Acute CHF with combined diastolic/systolic dysfunction: EF 20% appears compensted 2. 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 NYHA 1-2 3. Polysubstance abuse: UDS+ marijuana/cocaine 4. Hyperthyroidism: new finding.. per PCP 5. Mild troponin elevation. no EKG changes by comparison. Notable for significant LVH. Suspect demand mediated with culprits above 6. Reactive sinus tach due to above: rate better 7. Atypical CP: possibly from coughing and palpitations 8. Anxiety 9. Hypomagnesemia: replaced 10. Tobaccoism Recommendations 1. Continue on coreg. Lisinopril added. Lasix daily. Encouraged not to use cocaine with current coreg use. 2. Discussed substance abuse cessation as well as her cardiomyopathy extensively 3. No need for statin as lipids are very well controlled. No ASA as this will make T3 conversion worse. Will need outpt creative writing teacher. 4. Will entertain outpt ischemic workup pending cessation of polysubstance abuse. Encouraged pt to follow up 5. Social service consult for financial contraints/disabilty. 6. Would benefit with lifevest ideally but would not be able to afford due to financial contraints. Pending if pt follows up and treatment compliance aggressive measures such as future AICD will be considered. JESSICA ZAMORANO HEEL STIFFENER Oct 10, 2019 11:48
[2019-10-10] MEDS ORDERED: LISI-338 PO (12:51)
[2019-10-10] MEDS ORDERED: CARV6.2511 PO (12:51)
[2019-10-10] MEDS ORDERED: FURO20TA3 PO (12:51)
[2019-10-10] MEDS ORDERED: PROPYLTHIOURACIL 50 MG PO SCH ×2 (14:00)
--- NOTE | 2019-10-10 14:15 | PDOC3 ---
Discharge Summary Visit Information Date of Admission: Oct 08, 2019 Date of Discharge: Oct 10, 2019 Final Diagnosis 1. 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 non ischemic cardiomyopathy, by cocaine and hyperthyroidism. NYHA 1-2 3. Polysubstance abuse: UDS+ marijuana/cocaine 4. Hyperthyroidism: new finding. started on PCU, 5. SIRS 6. Anxiety disorder, 7. Hypomagnesemia: 8. Tobaccoism Problems Medical Problems: (1) Acute heart failure Status: Acute (2) Cocaine abuse Status: Acute (3) Shortness of breath Status: Acute (4) Suspected COVID-19 virus infection Status: Acute Brief Hospital Course Allergies Allergies Coded Allergies Type Severity Reaction Last Updated Verified No Known Drug Allergies 09/06/14 No Vital Signs Vital Signs Date Time Temp Pulse Resp B/P (MAP) Pulse Ox O2 Delivery O2 Flow Rate FiO2 10/10/19 11:00 97.2 112 20 118/81 (93) 98 Nasal Cannula 2.0 97.2 Lab Results Laboratory Tests Test 10/08/19 14:40 10/08/19 14:45 10/08/19 15:50 10/08/19 15:52 White Blood Count 6.2 x10^3/uL (4.0-11.0) Red Blood Count 4.67 x10^6/uL (3.50-5.40) Hemoglobin 12.9 g/dL (12.0-15.5) Hematocrit 39.5 % (36.0-47.0) Mean Corpuscular Volume 85 fL (79-100) Mean Corpuscular Hemoglobin 28 pg (25-35) Mean Corpuscular Hemoglobin Concent 33 g/dL (31-37) Red Cell Distribution Width 14.2 % (11.5-14.5) Platelet Count 249 x10^3/uL (140-400) Neutrophils (%) (Auto) 33 % (31-73) Lymphocytes (%) (Auto) 52 % (24-48) Monocytes (%) (Auto) 14 % (0-9) Eosinophils (%) (Auto) 0 % (0-3) Basophils (%) (Auto) 1 % (0-3) Neutrophils # (Auto) 2.0 x10^3/uL (1.8-7.7) Lymphocytes # (Auto) 3.2 x10^3/uL (1.0-4.8) Monocytes # (Auto) 0.9 x10^3/uL (0.0-1.1) Eosinophils # (Auto) 0.0 x10^3/uL (0.0-0.7) Basophils # (Auto) 0.1 x10^3/uL (0.0-0.2) Prothrombin Time 14.8 SEC (11.7-14.0) Prothromb Time International Ratio 1.2 (0.8-1.1) Activated Partial Thromboplast Time 28 SEC (24-38) D-Dimer (Paola) 1.82 ug/mlFEU (0.00-0.50) Sodium Level 140 mmol/L (136-145) Potassium Level 2.8 mmol/L (3.5-5.1) Chloride Level 102 mmol/L (98-107) Carbon Dioxide Level 29 mmol/L (21-32) Anion Gap 9 (6-14) Blood Urea Nitrogen 9 mg/dL (7-20) Creatinine 0.6 mg/dL (0.6-1.0) Estimated GFR (Cockcroft-Gault) 107.2 BUN/Creatinine Ratio 15 (6-20) Glucose Level 133 mg/dL (70-99) Calcium Level 9.0 mg/dL (8.5-10.1) Magnesium Level 1.3 mg/dL (1.8-2.4) Total Bilirubin 1.2 mg/dL (0.2-1.0) Aspartate Amino Transf (AST/SGOT) 35 U/L (15-37) Alanine Aminotransferase (ALT/SGPT) 36 U/L (14-59) Alkaline Phosphatase 182 U/L (46-116) Creatine Kinase 74 U/L (26-192) Creatine Kinase MB (Mass) 1.5 ng/mL (0.0-3.6) Creatine Kinase MB Relative Index % (0-4) Troponin I Quantitative 0.061 ng/mL (0.000-0.055) SU-Och-T-Type Natriuretic Peptide 9151 pg/mL (0-124) Total Protein 6.6 g/dL (6.4-8.2) Albumin 2.7 g/dL (3.4-5.0) Albumin/Globulin Ratio 0.7 (1.0-1.7) Urine Opiates Screen Neg (NEG) Urine Methadone Screen Neg (NEG) Urine Barbiturates Neg (NEG) Urine Phencyclidine Screen Neg (NEG) Urine Amphetamine/Methamphetamine Neg (NEG) Urine Benzodiazepines Screen Neg (NEG) Urine Cocaine Screen Pos (NEG) Urine Cannabinoids Screen Pos (NEG) Urine Ethyl Alcohol Neg (NEG) Influenza Type A Antigen Negative (NEGATIVE) Influenza Type B Antigen Negative (NEGATIVE) Coronavirus (COVID-19)(PCR) See separate report Test 10/08/19 15:55 10/09/19 11:10 Urine Collection Type Unknown Urine Color Yellow Urine Clarity Clear Urine pH 7.0 (<5.0-8.0) Urine Specific [place] <=1.005 (1.000-1.030) Urine Protein Negative mg/dL (NEG-TRACE) Urine Glucose (UA) Negative mg/dL (NEG) Urine Ketones (Stick) Negative mg/dL (NEG) Urine Blood Negative (NEG) Urine Nitrite Negative (NEG) Urine Bilirubin Negative (NEG) Urine Urobilinogen Dipstick 2.0 mg/dL (0.2 mg/dL) Urine Leukocyte Esterase Trace (NEG) Urine RBC 0 /HPF (0-2) Urine WBC 1-4 /HPF (0-4) Urine Squamous Epithelial Cells Few /LPF Urine Bacteria Moderate /HPF (0-FEW) Sodium Level 144 mmol/L (136-145) Potassium Level 4.2 mmol/L (3.5-5.1) Chloride Level 106 mmol/L (98-107) Carbon Dioxide Level 31 mmol/L (21-32) Anion Gap 7 (6-14) Blood Urea Nitrogen 16 mg/dL (7-20) Creatinine 0.8 mg/dL (0.6-1.0) Estimated GFR (Cockcroft-Gault) 76.9 Glucose Level 94 mg/dL (70-99) Calcium Level 8.6 mg/dL (8.5-10.1) Magnesium Level 1.4 mg/dL (1.8-2.4) Troponin I Quantitative 0.051 ng/mL (0.000-0.055) PB-Uvt-B-Type Natriuretic Peptide 5287 pg/mL (0-124) Triglycerides Level 56 mg/dL (0-150) Cholesterol Level 99 mg/dL (0-200) LDL Cholesterol, Calculated 66 mg/dL (0-100) VLDL Cholesterol, Calculated 11 mg/dL (0-40) Non-HDL Cholesterol Calculated 77 mg/dL (0-129) HDL Cholesterol 22 mg/dL (40-60) Cholesterol/HDL Ratio 4.5 Thyroid Stimulating Hormone (TSH) < 0.007 uIU/mL (0.358-3.74) Free Thyroxine 3.83 ng/dL (0.76-1.46) Free Triiodothyronine (T3) pg/mL 11.70 pg/mL (2.18-3.98) Brief Hospital Course Ms. Marrero is a 48 old female who presented with shortness of breath, due to cocaine abuse hyperthyroid, likely from cocaine contaminant of Levamisole. PTU given, will need f/u of thyroid fxn tobacco use code guillen on admit, violent behavior, poss contam in the cocaine use. BNP was initially at 9000 and was brought down to 5000 level after diuresis. Cardiology consultation and meds adjusted. PAT team psych eval, will need sobriety to improve Discharge Information Condition at Discharge: Improved Follow Up: Weeks Disposition/Orders: D/C to Home Scheduled Carvedilol (Carvedilol ) 6.25 Mg Tablet, 6.25 MG PO BIDWMEALS for CHF, #60 Prescribed by: KRISTEN PRINCE on 10/10/19 1251 Cephalexin (Keflex) 500 Mg Capsule, 1 CAP PO TID for 10 Days, #30 Ref 0 Prescribed by: LUÍS PERRY APRN on 04/12/191517 Last Action: HELD on 10/08/191607 by MARY WILKINS MD Clotrimazole/Betamethasone Dip (Clotrimazole-Betamethasone Crm) 15 Gm Cream..g., 1 CELINE TP BID, #30 Ref 1 Prescribed by: LUÍS PERRY APRN on 04/12/191517 Last Action: Continued on 10/08/191608 by MARY WILKINS MD Cyclobenzaprine Hcl (Cyclobenzaprine Hcl) 5 Mg Tablet, 1 TAB PO QHS, #15 Prescribed by: SMITH PETTIT APRN on 10/23/17 0748 Last Action: Converted on 10/08/191608 by MARY WILKINS MD Furosemide (Furosemide) 20 Mg Tablet, 20 MG PO DAILY for CHF, #30 Prescribed by: KRISTEN PRINCE on 10/10/19 1251 Lisinopril (Lisinopril) 5 Mg Tablet, 5 MG PO DAILY for CHF, #30 Prescribed by: KRISTEN PRINCE on 10/10/19 1251 Naproxen (Naprosyn) 500 Mg Tablet, 1 TAB PO BID, #30 Ref 1 Prescribed by: CHETNA MCNULTY MD on 07/02/17 0001 Last Action: Continued on 10/08/191608 by MARY WILKINS MD Naproxen (Naprosyn) 500 Mg Tablet, 1 TAB PO BID, #30 Ref 1 Prescribed by: SMITH PETTIT APRN on 10/23/17 0748 Last Action: HELD on 10/08/191607 by MARY WILKINS MD Propylthiouracil (Propylthiouracil) 50 Mg Tablet, 50 MG PO Q8HRS for hyperthyroid, #90 Prescribed by: KRISTEN PRINCE on 10/10/19 1424 Sulfamethoxazole/Trimethoprim (Bactrim Ds Tablet) 1 Each Tablet, 1 TAB PO BID, #14 Ref 0 Prescribed by: LISBETH JONES APRN on 08/05/18 193 Last Action: HELD on 10/08/191607 by MARY WILKINS MD Triamcinolone Acetonide (Triamcinolone Acetonide 0.1% Oint) 15 Gm Oint...g., 1 CELINE TP BID for WOUND CARE, #1 MIX WITH EUCERIN DIRECTED BY PHYSICIAN Prescribed by: SMITH PETTIT APRN on 10/23/17 0749 Last Action: Continued on 10/08/191608 by MARY WILKINS MD Triamcinolone Acetonide (Triamcinolone Acetonide 0.025% Cream) 15 Gm Cream..g., 1 CELINE TP BID, #30 Prescribed by: BRAULIO FARRELL MD on 02/17/19 2148 Last Action: Converted on 10/08/191608 by MARY WILKINS MD Scheduled PRN Cyclobenzaprine Hcl (Cyclobenzaprine Hcl) 10 Mg Tablet, 10 MG PO TID PRN for muscle spasm, #30 Prescribed by: ODILON WREN APRN on 05/29/17 1658 Last Action: Continued on 10/08/191608 by MARY WILKINS MD Naproxen (Naprosyn) 500 Mg Tablet, 500 MG PO BID PRN for PAIN, #20 Prescribed by: ODILON WREN APRN on 05/29/17 1658 Last Action: HELD on 10/08/191607 by MARY WILKINS MD Tramadol Hcl (Tramadol Hcl) 50 Mg Tablet, 50 MG PO Q6H PRN for PAIN for 3 Days, #15 Ref 0 Prescribed by: SACHIN MARTIN on 08/14/19 2343 Last Action: Continued on 10/08/191608 by MARY WILKINS MD Miscellaneous Medications Info (No Known Medications Prior To Admisstion) Each, 1 EACH MC, (Reported) Entered as Reported by: KELVIN NEWTON on 09/06/14 1402 Last Action: HELD on 10/08/191607 by MARY WILKINS MD Patient Instructions Patient Instructions > 30 min lit review of cocaine and hypertyroid and discussed with other physicians face to face discussed with pt KRISTEN PRINCE MD Oct 10, 2019 14:15
[2019-10-10] MEDS ORDERED: PROP50TA17 PO ×2 (14:24→14:31)
--- NOTE | 2019-10-10 15:00 | NUR ---
Discharge Note: BRIDGET BACH [address] Discharge instructions and discharge home medications reviewed with Patient and a copy given. All questions have been answered and understanding verbalized. The following instructions and handouts were given: lisinopril, furosemide, carvedilol, propylthiouracil Patient discharged to home with self via wheelchair.
--- NOTE | 2019-10-10 15:21 | NUR ---
SW following for discharge planning. Reviewed chart and spoke with LA Alfred. Pt does not require 02 at discharge per RN. Coordinated care with Carlos Manuel from the PAT team who saw this pt and provided resources and contact information to both [facility] (cocaine abuse) and the [facility] (depression). No additional SW needs at this time.
[2019-10-10] MEDS ORDERED: CARVEDILOL 6.25 MG TABLET. PO SCH (17:00)
[2019-10-11] MEDS ORDERED: POTASSIUM CHLORIDE 10 MEQ TABLET.ER. PO SCH (08:00)
== END 2019-10-10 15:30 | disposition home or self-care (01) | DRG 917 ==
LOC: ER 12:57 → 6 SOUTH 15:40 → 2 SOUTH 10-09 19:19
PROVIDERS: ADMIT Internal Medicine; ATTEND Internal Medicine
DX: T37.4X1A Poisoning by anthelminthics, accidental (unintentional), initial encounter (principal); I50.43 Acute on chronic combined systolic (congestive) and diastolic (congestive) heart failure; R65.10 Systemic inflammatory response syndrome (SIRS) of non-infectious origin without acute organ dysfunction; I42.8 Other cardiomyopathies; J44.1 Chronic obstructive pulmonary disease with (acute) exacerbation; I11.0 Hypertensive heart disease with heart failure; E78.5 Hyperlipidemia, unspecified; E05.90 Thyrotoxicosis, unspecified without thyrotoxic crisis or storm; E83.42 Hypomagnesemia; E87.6 Hypokalemia; F12.10 Cannabis abuse, uncomplicated; F14.10 Cocaine abuse, uncomplicated; F17.210 Nicotine dependence, cigarettes, uncomplicated; G89.29 Other chronic pain; M54.9 Dorsalgia, unspecified; I45.10 Unspecified right bundle-branch block; F41.9 Anxiety disorder, unspecified; Z20.828 Contact with and (suspected) exposure to other viral communicable diseases; Z98.51 Tubal ligation status; Z87.440 Personal history of urinary (tract) infections; Z79.899 Other long term (current) drug therapy; Y92.89 Other specified places as the place of occurrence of the external cause
CPT/HCPCS: 36415; 71045; 71275; 76536; 80048; 80053; 80061; 80307; 81001; 82553; 83735; 83880; 84439; 84443; 84481; 84484; 85025; 85379; 85610; 85730; 87086; 87804; 93005; 93306; 94640; 96361; 96374; 96375; 99285; J1650; J1940; J3010; J3475; J3480; G0378; J7613

== ENCOUNTER 2019-10-15 10:06 | Emergency (ER) | payer SELFPAY ==
[~2019-10-15] VITALS: Ht 167.6 cm; Wt 50.0 kg
[~2019-10-15 10:06] MED LIST changes: +CARV6.2511 PO; +FURO20TA3 PO; +LISI-338 PO; +PROP50TA17 PO
--- NOTE | 2019-10-15 11:42 | RAD ---
Study: CR CHEST AP ONLY Indication: Shortness of air. Comparison: 10/08/2019 Findings: The cardiomediastinal silhouette is again noted to be enlarged and the central vasculature plethoric. Generalized increased lung markings are similar to the comparison. Small right larger than left pleural effusions. Newly seen tenting of the right hemidiaphragm suggestive of worsening right lower lobe volume loss. No pneumothorax. Impression: 1. Redemonstrated cardiomediastinal silhouette enlargement and background findings typical of interstitial edema. Persistent small right larger than left pleural effusions. 2. Haziness at the right lung base with progressive tenting of the right hemidiaphragm favored on account of atelectasis. Electronically signed by: BRISA CARLIN MD (10/15/2019 11:39 AM) [id number]
[2019-10-15] MEDS ORDERED: LORazepam 0.5 MG TABLET PO ONE (12:30)
--- NOTE | 2019-10-15 12:33 | PHYS DOC ---
Past Medical History Past Medical History: No Pertinent History Additional Past Medical Histor: "Needs Spine Surgery", UNKNOWN BREATHING PROBLEM Past Surgical History: Tubal ligation, Other Additional Past Surgical Histo: had surgery on her hand about 2 months ago Smoking Status: Current Every Day Smoker Alcohol Use: Occasionally Drug Use: Marijuana General Adult EDM: Chief Complaint: SHORTNESS OF BREATH HPI: HPI: Patient is a 48 year old female who presented today for evaluation of trouble breathing. Patient says she feels really anxious. Patient was admitted on October 07, discharged home on October 09 with multiple medication. Patient was found to have CHF due to her lifestyle. Patient is a smoker, using cocaine. Patient says she did not have money to fill the prescription so she has not taken any of the medication that she would recommend to take. She woke up this morning having anxiety and trouble breathing so she came here for evaluation. Patient denies any fever, no chest pain, no abdominal pain, no nausea vomiting. Patient denies suicidal ideation. Review of Systems: Review of Systems: Constitutional: Denies fever or chills. [] Eyes: Denies change in visual acuity. [] HENT: Denies nasal congestion or sore throat. [] Respiratory: Denies cough, POSITIVE FOR shortness of breath. [] Cardiovascular: Denies chest pain or edema. [] GI: Denies abdominal pain, nausea, vomiting, bloody stools or diarrhea. [] : Denies dysuria. [] Musculoskeletal: Denies back pain or joint pain. [] Integument: Denies rash. [] Neurologic: Denies headache, focal weakness or sensory changes. [] Endocrine: Denies polyuria or polydipsia. [] Lymphatic: Denies swollen glands. [] Psychiatric: Denies depression or anxiety. [] Heart Score: Risk Factors: Risk Factors: DM, Current or recent (<one month) smoker, HTN, HLP, family history of CAD, obesity. Risk Scores: Score 0 - 3: 2.5% MACE over next 6 weeks - Discharge Home Score 4 - 6: 20.3% MACE over next 6 weeks - Admit for Clinical Observation Score 7 - 10: 72.7% MACE over next 6 weeks - Early Invasive Strategies Current Medications: Current Medications Medications (Trade) Dose Ordered Sig/Abhishek Start Time Stop Time Status Last Admin Dose Admin Lorazepam (Ativan) 0.5 mg 1X ONCE 10/15/19 12:30 10/15/19 12:31 Allergies: Allergies: Allergies Coded Allergies Type Severity Reaction Last Updated Verified No Known Drug Allergies 09/06/14 No Physical Exam: PE: Constitutional: Well developed, well nourished, no acute distress, non-toxic a ppearance. [] HENT: Normocephalic, atraumatic, bilateral external ears normal, oropharynx moist, no oral exudates, nose normal. [] Eyes: PERRLA, EOMI, conjunctiva normal, no discharge. [] Neck: Normal range of motion, no tenderness, supple, no stridor. [] Cardiovascular:Heart rate regular rhythm, no murmur [] Lungs & Thorax: Bilateral breath sounds clear to auscultation [] Abdomen: Bowel sounds normal, soft, no tenderness, no masses, no pulsatile masses. [] Skin: Warm, dry, no erythema, no rash. [] Back: No tenderness, no CVA tenderness. [] Extremities: No tenderness, no cyanosis, no clubbing, ROM intact, no edema. [] Neurologic: Alert and oriented X 3, normal motor function, normal sensory function, no focal deficits noted. [] Psychologic: Affect normal, judgement normal, mood normal. [] Current Patient Data: Vital Signs: Vital Signs Date Time Temp Pulse Resp B/P (MAP) Pulse Ox O2 Delivery O2 Flow Rate FiO2 10/15/19 10:44 98.0 104 18 142/98 (113) 99 Room Air 98.0 EKG: EKG: [] Radiology/Procedures: Radiology/Procedures: [][facility] [address] [place] [address] IMAGING REPORT Signed PATIENT: BRIDGET BACH LACCOUNT: [id number] : 1970 LOCATION: ER AGE: 48 SEX: F EXAM STATUS: REG ER ORD. PHYSICIAN: MARISSA WARD DO REASON: SOA RM 19 PROCEDURE: CHEST AP ONLY Study: CR CHEST AP ONLY Indication: Shortness of air. Comparison: 10/08/2019 Findings: The cardiomediastinal silhouette is again noted to be enlarged and the central vasculature plethoric. Generalized increased lung markings are similar to the comparison. Small right larger than left pleural effusions. Newly seen tenting of the right hemidiaphragm suggestive of worsening right lower lobe volume loss. No pneumothorax. Impression: 1. Redemonstrated cardiomediastinal silhouette enlargement and background findings typical of interstitial edema. Persistent small right larger than left pleural effusions. 2. Haziness at the right lung base with progressive tenting of the right hemidiaphragm favored on account of atelectasis. Electronically signed by: BRISA CARLIN MD (10/15/2019 11:39 AM) [id number] DICTATED and SIGNED BY: BRISA CARLIN MD DATE: 10/15/19 1139 Course & Med Decision Making: Course & Med Decision Making Pertinent Labs and Imaging studies reviewed. (See chart for details) Patient said her son JUST went to pharmacy and paid for the medications , he has them at home. Patient will be discharged home, she will take the medication as prescribed. Dragon Disclaimer: Dragon Disclaimer: This electronic medical record was generated, in whole or in part, using a voice recognition dictation system. Departure Departure Impression: Primary Impression: Anxiety Additional Impressions: Dyspnea CHF (congestive heart failure) Disposition: 01 HOME, SELF-CARE Condition: IMPROVED Referrals: NO PCP (PCP) follow up with your doctor this week. Patient Instructions: Anxiety and Panic Attacks, [id number], Heart Failure Additional Instructions: Thank you for visiting our Emergency Department. We appreciate you trusting us with your care. If any additional problems come up don't hesitate to return to visit us. Please follow up with your primary care provider so they can plan additional care if needed and know about the problem that you had. If symptoms worsen come back to the Emergency Department. Any concerning symptoms that start such as chest pain, shortness of air, weakness or numbness on one side of the body, running high fevers or any other concerning symptoms return to the ER. MARISSA WARD DO Oct 15, 2019 12:33
[2019-10-15 12:45] VITALS: BP 128/81
== END 2019-10-15 12:55 | disposition home or self-care (01) ==
LOC: ER 10:06
DX: F41.9 Anxiety disorder, unspecified (principal); R06.00 Dyspnea, unspecified; I50.9 Heart failure, unspecified; F17.200 Nicotine dependence, unspecified, uncomplicated; F12.90 Cannabis use, unspecified, uncomplicated; Z98.51 Tubal ligation status; Z98.890 Other specified postprocedural states
CPT/HCPCS: 71045; 99283

== ENCOUNTER 2019-12-15 21:55 | Emergency (ER) | payer SELFPAY ==
[~2019-12-15] VITALS: Ht 167.6 cm; Wt 50.0 kg
[2019-12-15 22:09] VITALS: BP 124/90
== END 2019-12-15 22:50 ==
LOC: ER 21:55
DX: R06.02 Shortness of breath (principal); Z53.21 Procedure and treatment not carried out due to patient leaving prior to being seen by health care provider

== ENCOUNTER → 2020-01-31 | Outpatient (CLI) | payer OTHER ==
--- NOTE | 2020-01-31 17:22 | RAD ---
2 view lumbar spine series Clinical indications: Low back pain. FINDINGS: No compression fracture or discitis or lytic process or anterolisthesis is evident. There is moderate degenerative disc space narrowing and mild degenerative endplate spurring at L5-S1. The transverse processes are intact. IMPRESSION: No acute compression fracture. Degenerative lumbar spondylosis at L5-S1. Electronically signed by: Samuel Melgoza MD (01/31/2020 5:19 PM) [id number]
== END | disposition home or self-care (01) ==
LOC: RAD 11:56
PROVIDERS: ATTEND Anesthesiology Pain Medicine
DX: M47.817 Spondylosis without myelopathy or radiculopathy, lumbosacral region (principal)
CPT/HCPCS: 72100

== ENCOUNTER 2020-05-27 17:11 | Emergency (ER) | payer MEDICAID, OTHER ==
[~2020-05-27] VITALS: Ht 170.2 cm; Wt 59.0 kg
[2020-05-27] MEDS ORDERED: IV NORMAL SALINE 1000ML BAG 1,000 ML IV ONE (19:30)
[2020-05-27 19:37] LABS: BILIRUBIN,URINE SMALL (NEG); CLARITY,URINE CLEAR; COLOR,URINE AMBER; NITRITE,URINE NEGATIVE (NEG); PROTEIN,URINE 100 mg/dL (NEG-TRACE)
[2020-05-27 19:44] LABS: BARBITURATES NEG (NEG); BENZODIAZEPINES NEG (NEG); CANNABINOIDS POS (NEG); COCAINE POS (NEG); METHADONE NEG (NEG); OPIATES NEG (NEG); PHENCYCLIDINE NEG (NEG)
[2020-05-27 19:45] LABS: AMPHETAMINE/METHAMPHETAMINE NEG (NEG)
[2020-05-27 19:46] LABS: HYALINE CASTS, URINE FEW /HPF
[2020-05-27 19:47] LABS: BACTERIA,URINE 0 /HPF (0-FEW); RBC,URINE OCC /HPF (0-2); WBC,URINE OCC /HPF (0-4)
[2020-05-27 20:21] LABS: BASO % 0 % (0-3); EOS # 0.1 x10^3/uL (0.0-0.7); EOS % 1 % (0-3); HEMATOCRIT 36.6 % (36.0-47.0); HEMOGLOBIN 11.9 g/dL (12.0-15.5); LYMPH % 57 % (24-48); MEAN CORPUSCULAR HEMOGLOBIN 27 pg (25-35); MEAN CORPUSCULAR HGB CONC 32 g/dL (31-37); MEAN CORPUSCULAR VOLUME 83 fL (79-100); MONO % 15 % (0-9); NEUT # 1.9 x10^3/uL (1.8-7.7); NEUT % 28 % (31-73); PLATELET COUNT 267 x10^3/uL (140-400); RED BLOOD COUNT 4.41 x10^6/uL (3.50-5.40); RED CELL DISTRIBUTION WIDTH 13.8 % (11.5-14.5)
[2020-05-27 20:26] LABS: CALCIUM 8.8 mg/dL (8.5-10.1); CREATININE 0.6 mg/dL (0.6-1.0); GFR 129.1; POTASSIUM 3.6 mmol/L (3.5-5.1)
[2020-05-27 20:32] LABS: ALBUMIN 2.9 g/dL (3.4-5.0); ALBUMIN/GLOBULIN RATIO 0.8 (1.0-1.7); TOTAL BILIRUBIN 0.6 mg/dL (0.2-1.0); TOTAL PROTEIN 6.7 g/dL (6.4-8.2)
[2020-05-27 20:57] VITALS: BP 117/86
[2020-05-27 21:13] LABS: % ATYL 4 % (0-0); % EOS 1 % (0-5); % LYMPHS 68 % (24-48); % MONOS 7 % (0-10); % SEGS 20 % (35-66); ANISOCYTOSIS SLIGHT; HYPOCHROMIA SLIGHT; PLT ESTIMATE ADEQUATE (ADEQUATE)
[2020-05-27 21:14] LABS: POLYCHROMASIA SLIGHT
[2020-05-27] MEDS ORDERED: IBUP-1007 PO (21:54)
--- NOTE | 2020-05-27 21:55 | PHYS DOC ---
Past Medical History Past Medical History: Anxiety, CHF, Depression, High Cholesterol, Hypertension, Other Additional Past Medical Histor: CHRONIC PAIN, STRESS INCONT Past Surgical History: Other Additional Past Surgical Histo: Hand surgery Smoking Status: Current Every Day Smoker Alcohol Use: None Drug Use: Marijuana General Adult EDM: Chief Complaint: ABDOMINAL PAIN HPI: HPI: Patient is a 49 year old female presents emergency department complaining of left upper quadrant pain for the past 3 days, denies nausea vomiting diarrhea. Patient denies shortness of breath. Patient denies chest pain other than in her right upper quadrant area. Patient states her pain is 8/10 on a 1-10 pain scale. Patient states that she smoked some marijuana and crack cocaine at approximately 9 AM this morning to relieve the pain. Patient states that the pain was relieved down to a 0 for only short time and her pain came back. Patient denies alcohol usage states that she does smoke cigarettes. Patient states her only surgical history is a right hand fracture repair in September 2019. Patient states she takes medications for congestive heart failure with poor ejection fraction. Patient denies swelling of her glands. Back pains. Skin rashes. Patient denies headaches, focal weaknesses or sensory changes. Patient denies COVID-19 virus symptoms, does not wish to be checked for the COVID-19 virus today. She denies swelling of her glands, any recent depressions, anxieties, homicidal or suicidal ideation. Patient denies any other physical complaints or physical illnesses. Review of Systems: Review of Systems: Constitutional: Denies fever or chills. Eyes: Denies change in visual acuity. HENT: Denies nasal congestion or sore throat. Respiratory: Denies cough or shortness of breath. Cardiovascular: Denies chest pain or edema. GI: Denies, nausea, vomiting, bloody stools or diarrhea. Planes of left upper quadrant pain. : Denies dysuria. Musculoskeletal: Denies back pain or joint pain. Integument: Denies rash. Neurologic: Denies headache, focal weakness or sensory changes. Endocrine: Denies polyuria or polydipsia. Lymphatic: Denies swollen glands. Psychiatric: Denies depression or anxiety. Heart Score: HEART Score for Chest Pain: HEART Score for Chest Pain Response (Comments) Value History Moderately Suspicious 1 Age >45 - < 65 1 Risk Factors >3 Risk Factors or Hx CAD 2 Troponin < Normal Limit 0 Total 4 Risk Factors: Risk Factors: DM, Current or recent (<one month) smoker, HTN, HLP, family history of CAD, obesity. Risk Scores: Score 0 - 3: 2.5% MACE over next 6 weeks - Discharge Home Score 4 - 6: 20.3% MACE over next 6 weeks - Admit for Clinical Observation Score 7 - 10: 72.7% MACE over next 6 weeks - Early Invasive Strategies Family History: Family History: Patient states both her mother and her father have heart disease and high blood pressure and diabetes. Current Medications: Current Medications Medications (Trade) Dose Ordered Sig/Abhishek Start Time Stop Time Status Last Admin Dose Admin Lorazepam (Ativan Inj) 1 mg 1X ONCE 05/27/20 19:30 05/27/20 19:34 DC 05/27/20 20:09 1 MG Sodium Chloride 1,000 ml @ 1,000 mls/hr 1X ONCE 05/27/20 19:30 05/27/20 20:29 DC 05/27/20 20:07 1,000 MLS/HR Allergies: Allergies: Allergies Coded Allergies Type Severity Reaction Last Updated Verified No Known Drug Allergies 09/06/14 No Physical Exam: PE: Constitutional: Well developed, well nourished, no acute distress, non-toxic appearance. Patient was very anxious during physical exam however cooperative, patient moving around on the bed, but would follow commands appropriately. HENT: Normocephalic, atraumatic, bilateral external ears normal, oropharynx moist, no oral exudates, nose normal. Eyes: PERRLA, EOMI, conjunctiva normal, no discharge. Neck: Normal range of motion, no tenderness, supple, no stridor. Cardiovascular:Heart rate regular rhythm, diastolic murmur appreciated upon auscultation. Lungs & Thorax: Bilateral breath sounds clear to auscultation all lung crawford. Abdomen: Bowel sounds normal, soft,, no masses, no pulsatile masses. Tenderness to palpation in the left upper quadrant. No radiation of pain noted, no rebound tenderness noted. Skin: Warm, dry, no erythema, no rash. Back: No tenderness, no CVA tenderness. Extremities: No tenderness, no cyanosis, no clubbing, ROM intact, no edema. Neurologic: Alert and oriented X 3, normal motor function, normal sensory function, no focal deficits noted. Psychologic: Affect normal, judgement normal, mood normal. Current Patient Data: Labs: Laboratory Tests Test 05/27/20 18:28 05/27/20 19:50 Urine Collection Type Unknown Urine Color Roseanne Urine Clarity Clear Urine pH 6.0 (<5.0-8.0) Urine Specific [place] 1.015 (1.000-1.030) Urine Protein 100 mg/dL (NEG-TRACE) Urine Glucose (UA) Negative mg/dL (NEG) Urine Ketones (Stick) Negative mg/dL (NEG) Urine Blood Negative (NEG) Urine Nitrite Negative (NEG) Urine Bilirubin Small (NEG) Urine Urobilinogen Dipstick 4.0 mg/dL (0.2 mg/dL) Urine Leukocyte Esterase Negative (NEG) Urine RBC Occ /HPF (0-2) Urine WBC Occ /HPF (0-4) Urine Squamous Epithelial Cells Few /LPF Urine Bacteria 0 /HPF (0-FEW) Urine Hyaline Casts Few /HPF Urine Mucus Mod /LPF Urine Opiates Screen Neg (NEG) Urine Methadone Screen Neg (NEG) Urine Barbiturates Neg (NEG) Urine Phencyclidine Screen Neg (NEG) Urine Amphetamine/Methamphetamine Neg (NEG) Urine Benzodiazepines Screen Neg (NEG) Urine Cocaine Screen Pos (NEG) Urine Cannabinoids Screen Pos (NEG) Urine Ethyl Alcohol Neg (NEG) White Blood Count 7.0 x10^3/uL (4.0-11.0) Red Blood Count 4.41 x10^6/uL (3.50-5.40) Hemoglobin 11.9 g/dL (12.0-15.5) L Hematocrit 36.6 % (36.0-47.0) Mean Corpuscular Volume 83 fL (79-100) Mean Corpuscular Hemoglobin 27 pg (25-35) Mean Corpuscular Hemoglobin Concent 32 g/dL (31-37) Red Cell Distribution Width 13.8 % (11.5-14.5) Platelet Count 267 x10^3/uL (140-400) Neutrophils (%) (Auto) 28 % (31-73) L Lymphocytes (%) (Auto) 57 % (24-48) H Monocytes (%) (Auto) 15 % (0-9) H Eosinophils (%) (Auto) 1 % (0-3) Basophils (%) (Auto) 0 % (0-3) Neutrophils # (Auto) 1.9 x10^3/uL (1.8-7.7) Lymphocytes # (Auto) 4.0 x10^3/uL (1.0-4.8) Monocytes # (Auto) 1.0 x10^3/uL (0.0-1.1) Eosinophils # (Auto) 0.1 x10^3/uL (0.0-0.7) Basophils # (Auto) 0.0 x10^3/uL (0.0-0.2) Segmented Neutrophils % 20 % (35-66) L Lymphocytes % 68 % (24-48) H Atypical Lymphocytes % (Manual) 4 % (0-0) H Monocytes % 7 % (0-10) Eosinophils % 1 % (0-5) Platelet Estimate Adequate (ADEQUATE) Polychromasia Slight Hypochromasia Slight Anisocytosis Slight Sodium Level 140 mmol/L (136-145) Potassium Level 3.6 mmol/L (3.5-5.1) Chloride Level 104 mmol/L (98-107) Carbon Dioxide Level 25 mmol/L (21-32) Anion Gap 11 (6-14) Blood Urea Nitrogen 12 mg/dL (7-20) Creatinine 0.6 mg/dL (0.6-1.0) Estimated GFR (Cockcroft-Gault) 129.1 BUN/Creatinine Ratio 20 (6-20) Glucose Level 116 mg/dL (70-99) H Calcium Level 8.8 mg/dL (8.5-10.1) Magnesium Level 1.6 mg/dL (1.8-2.4) L Total Bilirubin 0.6 mg/dL (0.2-1.0) Aspartate Amino Transferase (AST) 33 U/L (15-37) Alanine Aminotransferase (ALT) 33 U/L (14-59) Alkaline Phosphatase 236 U/L (46-116) H Troponin I Quantitative 0.021 ng/mL (0.000-0.055) Total Protein 6.7 g/dL (6.4-8.2) Albumin 2.9 g/dL (3.4-5.0) L Albumin/Globulin Ratio 0.8 (1.0-1.7) L Lipase 54 U/L (73-393) L Laboratory Tests 05/27/20 19:50 Laboratory Tests 05/27/20 19:50 Vital Signs: Vital Signs Date Time Temp Pulse Resp B/P (MAP) Pulse Ox O2 Delivery O2 Flow Rate FiO2 05/27/20 20:57 95 22 117/86 (96) 95 Room Air 05/27/20 18:33 97.4 97.4 EKG: EKG: EKG performed at 1957 by ED nursing staff, normal sinus rhythm heart rate 100 bpm, MA interval 0.140, QTc interval 0.457, no ischemia, no ACS, no STEMI noted, EKG interpreted by ED attending Dr. Baer. Radiology/Procedures: Radiology/Procedures: [] Course & Med Decision Making: Course & Med Decision Making Pertinent Labs and Imaging studies reviewed. (See chart for details) 49-year-old female presented to the emergency department complaining of left upper quadrant pain. Patient was very anxious during examination, vital signs were reviewed, a ER work-up was initiated, concerning for cardiac complications. Patient was very anxious during ED nursing's attempt to start IV and draw labs, 1 mg was ordered IV. Upon reexamination patient was no longer anxious, calm sitting in the bed. Discussed with patient concerns about cardiac complications, patient states that she wishes to get something for the pain that is better than Tylenol or Motrin. When asked specifically what she would need, patient explained that she would like either Percocet or Vicodin tens. Discussed with patient equivocal labs and need to stay for serial cardiac enzymes as well as clinical admission to the hospital to rule out cardiac complications. Patient refused offered admission, patient states she just needs something for her pain. Patient did admit to smoking marijuana with crack cocaine at approximately 9 AM. Patient reports that she hardly ever smokes crack cocaine. And only did it because she had chest pains and upper abdominal pains. I urged patient to reconsider and stay in the emergency department for further evaluation and possible admission to the hospital, patient refused and left AGAINST MEDICAL ADVICE. Patient is alert and oriented, in my opinion capable of making her own informed medical decisions, patient signed AMA form and left emergency department ambulatory without incident. Patient was given strict return to emergency department precautions, discharge instructions were printed and given to the patient prior to the patient leaving. Dragon Disclaimer: Dragon Disclaimer: This electronic medical record was generated, in whole or in part, using a voice recognition dictation system. Departure Departure Impression: Primary Impression: Left against medical advice Additional Impressions: Chest pain Qualified Codes: R07.9 - Chest pain, unspecified Marijuana abuse Cocaine abuse Pain of upper abdomen Disposition: 01 DC HOME SELF CARE/HOMELESS Condition: STABLE Referrals: UNKNOWN PCP NAME (PCP) Patient Instructions: Abdominal Pain, Chest Pain (Nonspecific), Discharge Against Medical Advice Additional Instructions: We have discussed that we are not complete with our evaluation of your chest and abdominal pains, you have decided to leave AGAINST MEDICAL ADVICE, I urged you to return to the emergency department for worsening symptoms. Please see your doctor soon. EMERGENCY DEPARTMENT GENERAL DISCHARGE INSTRUCTIONS Thank you for coming to [facility] Emergency Department (ED) today and trusting us with you care. We trust that you had a positive experience in our Emergency Department. If you wish to speak to the department management, you may call the Director at [phone]. YOUR FOLLOW UP INSTRUCTIONS ARE FOLLOWS: 1. Do you have a private Doctor? If you do not have a private doctor, please ask for a resource list of physicians or clinics that may be able to assist you with follow up care. 2. The Emergency Physicain has interpreted your x-rays. The X-Ray specialist will also review them. If there is a change in the findings, you will be notified in 48 h ours when at all possible. 3. A lab test or culture has been done, your results will be reviewed and you will be notified if you need a change in treatment. ADDITIONAL INSTRUCTIONS AND INFORMATION: 1. Your care today has been supervised by a physician who is specially trained in emergency care. Many problems require more than one evaluation for a complete diagnosis and treatment. We recommend that you schedule your follow up appointment as recommended to ensure complete treatment of you illness or injury. If you are unable to obtain follow up care and continue to have a problem, or if your condition worsens, we recommend that you return to the ED. 2. We are not able to safely determine your condition over the phone nor are we able to give sound medical advice over the phone. For these safety reasons, if you call for medical advice we will ask you to come to the ED for further evaluation. 3. If you have any questions regarding these discharge instructions please call the ED at [phone]. SAFETY INFORMATION: In the interest of safety, wellness, and injury prevention; we encourage you to wear your sealbelt, if you smoke; quite smoking, and we encourage family to use a protective helmet for bicycling and other sporting events that present an increased risk for head injury. IF YOUR SYMPTOMS WORSEN OR NEW SYMPTOMS DEVELOP, OR YOU HAVE CONCERNS ABOUT YOUR CONDITION; OR IF YOUR CONDITION WORSENS WHILE YOU ARE WAITING FOR YOUR FOLLOW UP APPOINTMENT; EITHER CONTACT YOUR PRIMARY CARE DOCTOR, THE PHYSICIAN WHOSE NAME AND NUMBER YOU WERE GIVEN, OR RETURN TO THE ED IMMEDIATELY. Patient does not wish to proceed with medical care recommended by Amado NELSON OR ED ATTENDING DR.. BAER. Patient given information related to possible complications, up to and including , which could occur as a result of leaving the hospital at this time. Patient verbalizes understanding of risks involved due to leaving against medical advice. Patient has singned AMA form. Scripts Ibuprofen (IBUPROFEN) 600 Mg Tablet 600 MG PO PRN Q6HRS PRN for INFLAMMATION, #20 TAB 0 Refills Prov: HUSAM WYATT APRN 05/27/20 HUSAM WYATT APRN May 27, 2020 21:55
== END 2020-05-27 21:55 | disposition home or self-care (01) ==
LOC: ER 17:11
DX: R07.89 Other chest pain (principal); R10.12 Left upper quadrant pain; F12.90 Cannabis use, unspecified, uncomplicated; F14.90 Cocaine use, unspecified, uncomplicated; I11.0 Hypertensive heart disease with heart failure; I50.9 Heart failure, unspecified; F32.9 Major depressive disorder, single episode, unspecified; F41.9 Anxiety disorder, unspecified; E78.00 Pure hypercholesterolemia, unspecified; F17.200 Nicotine dependence, unspecified, uncomplicated; Z98.890 Other specified postprocedural states
CPT/HCPCS: 36415; 80053; 80307; 81001; 83690; 83735; 84484; 85007; 85025; 96361; 96374; 99285; J2060; J7030

== ENCOUNTER 2020-12-11 06:53 | Emergency (ER) | payer SELFPAY ==
[~2020-12-11] VITALS: Ht 170.2 cm; Wt 57.4 kg
[~2020-12-11 06:53] MED LIST changes: +IBUP-1007 PO; -LISI-338 PO; +LISI-517 PO
[2020-12-11] MEDS ORDERED: CLIN300C9 PO (07:26)
--- NOTE | 2020-12-11 07:28 | PHYS DOC ---
Past Medical History Past Medical History: Anxiety, CHF, Depression, High Cholesterol, Hypertension, Other Additional Past Medical Histor: CHRONIC PAIN, STRESS INCONT Past Surgical History: Other Additional Past Surgical Histo: Hand surgery Smoking Status: Current Every Day Smoker Alcohol Use: None Drug Use: Marijuana General Adult EDM: Chief Complaint: SKIN RASH/ABSCESS HPI: HPI: 50-year-old female with a facial abscess on the left cheek. She has a mild nonradiating pain over the last 2 to 3 days without alleviating factors. She denies any fevers or any other symptoms. Review of systems negative for chest pain shortness of breath fevers Chills difficulty swallowing tongue swelling or neck swelling. All other review of systems negative. Heart Score: C/O Chest Pain: No Risk Factors: Risk Factors: DM, Current or recent (<one month) smoker, HTN, HLP, family history of CAD, obesity. Risk Scores: Score 0 - 3: 2.5% MACE over next 6 weeks - Discharge Home Score 4 - 6: 20.3% MACE over next 6 weeks - Admit for Clinical Observation Score 7 - 10: 72.7% MACE over next 6 weeks - Early Invasive Strategies Allergies: Allergies: Allergies Coded Allergies Type Severity Reaction Last Updated Verified No Known Drug Allergies 09/06/14 No Physical Exam: PE: Constitutional: Well developed, well nourished, no acute distress, non-toxic appearance. [] HENT: Normocephalic, atraumatic, bilateral external ears normal, oropharynx moist, no oral exudates, nose normal. [] abcess on left cheek with associated mild cellulitis. Tongue is normal. No swelling of the neck. No swelling below the jawline. No involvement of the dentition or gums on the inside of the mouth. Eyes: PERRLA, EOMI, conjunctiva normal, no discharge. [] Neck: Normal range of motion, no tenderness, supple, no stridor. [] Cardiovascular:Heart rate regular rhythm, no murmur [] Lungs & Thorax: Bilateral breath sounds clear to auscultation [] Abdomen: Bowel sounds normal, soft, no tenderness, no masses, no pulsatile masses. [] Skin: Warm, dry, no erythema, no rash. [] Back: No tenderness, no CVA tenderness. [] Extremities: No tenderness, no cyanosis, no clubbing, ROM intact, no edema. [] Neurologic: Alert and oriented X 3, normal motor function, normal sensory function, no focal deficits noted. [] Psychologic: Affect normal, judgement normal, mood normal. [] EKG: EKG: [] Radiology/Procedures: Radiology/Procedures: [] Course & Med Decision Making: Course & Med Decision Making Pertinent Labs and Imaging studies reviewed. (See chart for details) [] Dragon Disclaimer: Dragon Disclaimer: This electronic medical record was generated, in whole or in part, using a voice recognition dictation system. Departure Departure Impression: Primary Impression: Abscess Disposition: HOME / SELF CARE / HOMELESS Condition: STABLE Referrals: UNKNOWN PCP NAME (PCP) Patient Instructions: Abscess, Care After Additional Instructions: EMERGENCY DEPARTMENT GENERAL DISCHARGE INSTRUCTIONS Follow-up with your primary physician in 1 to 2 days. Return to the emergency department if you have any new or concerning findings. Thank you for [facility] to [facility] (ED) today and trusting us with you care. We trust that you had a positive experience in our Emergency Department. If you wish to speak to the department management, you may call the Director at [phone]. Follow up is important in emergency/acute care visits. This condition should be evaluated by your primary care physician and any necessary consulting services for continued management within a few days (1-2) after discharge. Return to the emergency department if you have any new or concerning symptoms including but not limited to fever, chills, nausea, vomiting, intractable pain, any new rashes, chest pain, shortness of breath, uncontrolled bleeding, difficulty breathing, and/or vision loss. 1. Do you have a private Doctor? If you do not have a private doctor, please ask for a resource list of physicians or clinics that may be able to assist you with follow up care. 2. If a lab test or culture has been done and does not come back immediately, your results will be reviewed and you will be notified if you need a change in treatment. 3. Your care today has been supervised by a physician who is specially trained in emergency care. Many problems require more than one evaluation for a complete diagnosis and treatment. We recommend that you schedule your follow up appointment as recommended to ensure complete treatment of you illness or injury. If you are unable to obtain follow up care and continue to have a problem, or if your condition worsens, we recommend that you return to the ED. 4. We are not able to safely determine your condition over the phone nor are we able to give sound medical advice over the phone. For these safety reasons, if you call for medical advice we will ask you to come to the ED for further evaluation. IF YOUR SYMPTOMS WORSEN OR NEW SYMPTOMS DEVELOP, OR YOU HAVE CONCERNS ABOUT YOUR CONDITION; OR IF YOUR CONDITION WORSENS WHILE YOU ARE WAITING FOR YOUR FOLLOW UP APPOINTMENT; EITHER CONTACT YOUR PRIMARY CARE DOCTOR, THE PHYSICIAN WHOSE NAME AND NUMBER YOU WERE GIVEN, OR RETURN TO THE ED IMMEDIATELY. Scripts Clindamycin Hcl (CLINDAMYCIN HCL) 300 Mg Capsule 300 MG PO QID for 7 Days, #28 CAP 0 Refills Prov: FARTUN TEMPLETON MD 12/11/20 Incision and Drainage Indication: abscess Procedure: The patient was positioned appropriately. An needle was then inserted over the apex of the lesion and 1cc of purulent material was expressed. The drainage cavity was irrigated and packed with sterile gauze. The patients tetanus status updated as needed. The patient tolerated the procedure well. Complications: none. FARTUN TEMPLETON MD Dec 11, 2020 07:28
[2020-12-11 07:39] VITALS: BP 132/87
[2020-12-11] MEDS ORDERED: CLINDAMYCIN HCL 150 MG CAPSULE. PO ONE (07:45)
== END 2020-12-11 07:40 | disposition home or self-care (01) ==
LOC: ER 06:53
DX: L02.01 Cutaneous abscess of face (principal); E78.00 Pure hypercholesterolemia, unspecified; I11.0 Hypertensive heart disease with heart failure; I50.9 Heart failure, unspecified; G89.29 Other chronic pain; F17.200 Nicotine dependence, unspecified, uncomplicated
CPT/HCPCS: 10060; 99283

== ENCOUNTER 2021-01-01 17:59 | Emergency (ER) | payer SELFPAY ==
[~2021-01-01] VITALS: Ht 170.2 cm; Wt 59.0 kg
[~2021-01-01 17:59] MED LIST changes: +CLIN300C9 PO
[2021-01-01 18:05] VITALS: BP 155/93
[2021-01-01] MEDS ORDERED: ASPIRIN 325 MG TABLET PO ONE (18:30)
[2021-01-01] MEDS ORDERED: NITROGLYCERIN SUBLINGUAL 0.4 MG BOTTLE OF 25. SL PRN (18:30)
[2021-01-01] MEDS ORDERED: MORPHINE SULFATE 4 MG/ML INJ. IV/SQ PRN (18:30)
[2021-01-01 18:31] LABS: BASO # 0.1 x10^3/uL (0.0-0.2); BASO % 1 % (0-3); EOS # 0.1 x10^3/uL (0.0-0.7); EOS % 1 % (0-3); HEMATOCRIT 40.1 % (36.0-47.0); LYMPH # 4.3 x10^3/uL (1.0-4.8); LYMPH % 58 % (24-48); MEAN CORPUSCULAR HEMOGLOBIN 27 pg (25-35); MEAN CORPUSCULAR HGB CONC 33 g/dL (31-37); MEAN CORPUSCULAR VOLUME 84 fL (79-100); MONO # 0.7 x10^3/uL (0.0-1.1); MONO % 9 % (0-9); NEUT # 2.2 x10^3/uL (1.8-7.7); NEUT % 31 % (31-73); PLATELET COUNT 279 x10^3/uL (140-400); RED BLOOD COUNT 4.77 x10^6/uL (3.50-5.40); RED CELL DISTRIBUTION WIDTH 15.7 % (11.5-14.5); WHITE BLOOD COUNT 7.3 x10^3/uL (4.0-11.0)
--- NOTE | 2021-01-01 18:31 | EKG ---
[facility] [address] [place] [address] Test Date: 2021-01-01 Test Time: 18:03:16 Pat Name: BRIDGET BACH Department: Room: Gender: F Programmer Numerical Control: : 1970 Requested By: JORDAN SAM Order Number: [id number] Reading MD: Measurements Intervals [place] Rate: 110 P: 80 NC: 136 QRS: -66 QRSD: 94 T: 90 QT: 344 QTc: 471 Interpretive Statements SINUS TACHYCARDIA BIATRIAL ENLARGEMENT ABNORMAL LEFT AXIS DEVIATION LEFT ANTERIOR FASCICULAR BLOCK LVH WITH REPOLARIZATION ABNORMALITY ABNORMAL ECG RI6.02 No previous ECG available for comparison
[2021-01-01 18:43] LABS: CALCIUM 9.7 mg/dL (8.5-10.1); CREATININE 0.7 mg/dL (0.6-1.0); GFR 107.6; POTASSIUM 4.5 mmol/L (3.5-5.1)
--- NOTE | 2021-01-01 18:47 | PHYS DOC ---
Past Medical History Past Medical History: Anxiety, CHF, Depression, High Cholesterol, Hypertension, Hypothyroid, Other Additional Past Medical Histor: CHRONIC PAIN, STRESS INCONT, EF 15% Past Surgical History: Other Additional Past Surgical Histo: Hand surgery Smoking Status: Current Some Day Smoker Alcohol Use: None Drug Use: Marijuana General Adult EDM: Chief Complaint: CHEST PAIN HPI: HPI: Patient is a 50 year old female with history of hypertension, high cholesterol, anxiety, depression, CHF, CAD who presents the ED today complaining of left- sided chest pain, rates the pain as moderate, symptoms began 4 days ago, she states she was seen at [facility] and was told she has pneumonia. She states she was only sent home on inhalers. She states symptoms have not improved. Patient denies anything specifically exacerbating or relieving her pain. Denies any fever. Reports being a smoker. She also states she had an DC 2 months ago at but she does not know if they need any stents or not. Review of Systems: Review of Systems: Constitutional: Denies fever or chills. [] Eyes: Denies change in visual acuity. [] HENT: Denies nasal congestion or sore throat. [] Respiratory: Reports being diagnosed with pneumonia 4 days ago Cardiovascular: Reports left-sided chest pain GI: Denies abdominal pain, nausea, vomiting, bloody stools or diarrhea. [] : Denies dysuria. [] Musculoskeletal: Denies back pain or joint pain. [] Integument: Denies rash. [] Neurologic: Denies headache, focal weakness or sensory changes. [] Psychiatric: Denies depression or anxiety. [] Heart Score: C/O Chest Pain: Yes HEART Score for Chest Pain: HEART Score for Chest Pain Response (Comments) Value History Slighlty/Non-Suspicious 0 ECG Normal 0 Age >45 - < 65 1 Risk Factors 1 or 2 Risk Factors 1 Troponin < Normal Limit 0 Total 2 Risk Factors: Risk Factors: DM, Current or recent (<one month) smoker, HTN, HLP, family history of CAD, obesity. Risk Scores: Score 0 - 3: 2.5% MACE over next 6 weeks - Discharge Home Score 4 - 6: 20.3% MACE over next 6 weeks - Admit for Clinical Observation Score 7 - 10: 72.7% MACE over next 6 weeks - Early Invasive Strategies Current Medications: Current Medications Medications (Trade) Dose Ordered Sig/Abhishek Start Time Stop Time Status Last Admin Dose Admin Aspirin (Kaiden Aspirin) 325 mg 1X ONCE 01/01/21 18:30 01/01/21 18:31 DC Morphine Sulfate (Morphine Sulfate) 4 mg PRN Q15MIN PRN 01/01/21 18:30 01/02/21 18:29 Nitroglycerin (Nitrostat) 0.4 mg PRN Q5MIN PRN 01/01/21 18:30 01/02/21 18:29 Allergies: Allergies: Allergies Coded Allergies Type Severity Reaction Last Updated Verified No Known Drug Allergies 12/11/20 No Physical Exam: PE: Constitutional: Well developed, well nourished, no acute distress, non-toxic appearance. [] HENT: Normocephalic, atraumatic, bilateral external ears normal, oropharynx moist, no oral exudates, nose normal. [] Eyes: PERRLA, EOMI, conjunctiva normal, no discharge. [] Neck: Normal range of motion, no tenderness, supple, no stridor. [] Cardiovascular: Tachycardic, Lungs & Thorax: Diminished breath sounds posteriorly Abdomen: Bowel sounds normal, soft, no tenderness, no masses, no pulsatile masses. [] Skin: Warm, dry, no erythema, no rash. [] Back: No tenderness, no CVA tenderness. [] Extremities: No tenderness, no cyanosis, no clubbing, ROM intact, no edema. [] Neurologic: Alert and oriented X 3, normal motor function, normal sensory function, no focal deficits noted. [] Psychologic: Flat affect, restless, tossing around in the bed, appears high Current Patient Data: Labs: Laboratory Tests Test 01/01/21 18:20 White Blood Count 7.3 x10^3/uL (4.0-11.0) Red Blood Count 4.77 x10^6/uL (3.50-5.40) Hemoglobin 13.0 g/dL (12.0-15.5) Hematocrit 40.1 % (36.0-47.0) Mean Corpuscular Volume 84 fL (79-100) Mean Corpuscular Hemoglobin 27 pg (25-35) Mean Corpuscular Hemoglobin Concent 33 g/dL (31-37) Red Cell Distribution Width 15.7 % (11.5-14.5) H Platelet Count 279 x10^3/uL (140-400) Neutrophils (%) (Auto) 31 % (31-73) Lymphocytes (%) (Auto) 58 % (24-48) H Monocytes (%) (Auto) 9 % (0-9) Eosinophils (%) (Auto) 1 % (0-3) Basophils (%) (Auto) 1 % (0-3) Neutrophils # (Auto) 2.2 x10^3/uL (1.8-7.7) Lymphocytes # (Auto) 4.3 x10^3/uL (1.0-4.8) Monocytes # (Auto) 0.7 x10^3/uL (0.0-1.1) Eosinophils # (Auto) 0.1 x10^3/uL (0.0-0.7) Basophils # (Auto) 0.1 x10^3/uL (0.0-0.2) Laboratory Tests 01/01/21 18:20 EKG: EK interpreted by Dr. Ramírez sinus tachycardia heart rate 110 no STEMI [] Radiology/Procedures: Radiology/Procedures: [] Course & Med Decision Making: Course & Med Decision Making Pertinent Labs and Imaging studies reviewed. (See chart for details) This is a 50-year-old female patient presented to the ED today with chest pain, symptoms began 4 days ago. 1845 Patient eloped. Cruz Disclaimer: Cruz Disclaimer: This electronic medical record was generated, in whole or in part, using a voice recognition dictation system. Departure Departure Impression: Primary Impression: Chest pain Qualified Codes: R07.9 - Chest pain, unspecified Additional Impression: Smoking addiction Disposition: LEFT AGAINST MEDICAL ADVICE Condition: STABLE Referrals: NO PCP (PCP) JORDAN SAM DETACKER Jan 01, 2021 18:47
[2021-01-01 18:52] LABS: ALBUMIN 3.6 g/dL (3.4-5.0); ALBUMIN/GLOBULIN RATIO 1.1 (1.0-1.7); MAGNESIUM 1.7 mg/dL (1.8-2.4); TOTAL BILIRUBIN 0.9 mg/dL (0.2-1.0)
== END 2021-01-01 18:35 | disposition left against medical advice (07) ==
LOC: ER 17:59
DX: R07.89 Other chest pain (principal); I11.0 Hypertensive heart disease with heart failure; I50.9 Heart failure, unspecified; I25.10 Atherosclerotic heart disease of native coronary artery without angina pectoris; E78.00 Pure hypercholesterolemia, unspecified; E03.9 Hypothyroidism, unspecified; G89.29 Other chronic pain; F17.200 Nicotine dependence, unspecified, uncomplicated
CPT/HCPCS: 36415; 80053; 83605; 83690; 83735; 83880; 84145; 84443; 84484; 85025; 87040; 93005; 99285-25